=== PATIENT | female | born 1950 | race Caucasian/White ===

== ENCOUNTER → 2016-04-19 | Outpatient (CLI) | payer OTHER ==
[~2016-04-19] MED LIST: ACETAMINOPHEN 325 MG TAB PO ONE; diphenhydrAMINE 25 MG CAP PO ONE
[2016-04-19 11:24] LABS: % IMMATURE GRANULOCYTES 0.5 % (0.0-1.1); ABSOLUTE IMMATURE GRANULOCYTES 0.03 10^3/uL (0-0.10); HEMATOCRIT 26.1 % (38.0-47.0); HEMOGLOBIN 8.8 g/dL (12.6-16.3); MEAN CELL HEMOGLOBIN 35.6 pg (27.9-34.1); MEAN CELL HEMOGLOBIN CONC. 33.7 g/dL (32.4-36.7); MEAN CELL VOLUME 105.7 fL (81.5-99.8); MEAN PLATELET VOLUME 12.4 fL (8.7-11.7); RED BLOOD CELL COUNT 2.47 10^6/uL (4.18-5.33); RED CELL DISTRIBUTION WIDTH 15.3 % (11.5-15.2)
[2016-04-19 12:06] LABS: ALANINE AMINOTRANSFERASE 25 IU/L (9-52); ALKALINE PHOSPHATASE 63 IU/L (38-126); ANION GAP 10 mEq/L (8-16); ASPARTATE AMINOTRANSFERASE 25 IU/L (14-46); BILIRUBIN,TOTAL 0.8 mg/dL (0.1-1.4); CALCIUM 9.1 mg/dL (8.5-10.4); CARBON DIOXIDE 20 mEq/l (22-31); CHLORIDE 107 mEq/L (97-110); GLOMERULAR FILTRATION RATE 55; GLUCOSE 101 mg/dL (70-100); POTASSIUM 4.6 mEq/L (3.5-5.2); SODIUM 137 mEq/L (134-144); TOTAL PROTEIN 5.7 g/dL (6.3-8.2)
== END ==
LOC: RMCCLAB 06:09 → EDSTATUS 16:38 → F3EOP 16:39
PROVIDERS: ATTEND Internal Medicine Hematology & Oncology
PROC: 30233R1 Transfusion of Nonautologous Platelets into Peripheral Vein, Percutaneous Approach (ICD-10-PCS; principal; 2016-04-19)
DX: C50.919 Malignant neoplasm of unspecified site of unspecified female breast (principal)
CPT/HCPCS: 36430; P9037

== ENCOUNTER → 2016-04-25 | Outpatient (CLI) | payer OTHER ==
[2016-04-24 10:45] LABS: % IMMATURE GRANULOCYTES 1.6 % (0.0-1.1); ABSOLUTE IMMATURE GRANULOCYTES 0.12 10^3/uL (0-0.10); HEMOGLOBIN 7.8 g/dL (12.6-16.3); MEAN CELL HEMOGLOBIN 36.3 pg (27.9-34.1); MEAN CELL HEMOGLOBIN CONC. 33.9 g/dL (32.4-36.7); MEAN PLATELET VOLUME 10.5 fL (8.7-11.7); RED BLOOD CELL COUNT 2.15 10^6/uL (4.18-5.33); RED CELL DISTRIBUTION WIDTH 16.8 % (11.5-15.2)
[2016-04-24 11:48] LABS: ALANINE AMINOTRANSFERASE 27 IU/L (9-52); ALBUMIN 3.2 g/dL (3.5-5.0); ALKALINE PHOSPHATASE 60 IU/L (38-126); ANION GAP 11 mEq/L (8-16); ASPARTATE AMINOTRANSFERASE 27 IU/L (14-46); BILIRUBIN,TOTAL 0.5 mg/dL (0.1-1.4); CARBON DIOXIDE 20 mEq/l (22-31); CHLORIDE 110 mEq/L (97-110); CREATININE 0.9 mg/dL (0.6-1.0); GLOMERULAR FILTRATION RATE > 60; GLUCOSE 127 mg/dL (70-100); POTASSIUM 4.5 mEq/L (3.5-5.2); SODIUM 141 mEq/L (134-144); TOTAL PROTEIN 5.6 g/dL (6.3-8.2)
[~2016-04-25] MED LIST changes: -diphenhydrAMINE 25 MG CAP PO ONE
== END ==
LOC: RMCCLAB 04-24 06:39 → EDSTATUS 12:21 → F3EOP 12:22
PROVIDERS: ATTEND Internal Medicine Hematology & Oncology
PROC: 30233N1 Transfusion of Nonautologous Red Blood Cells into Peripheral Vein, Percutaneous Approach (ICD-10-PCS; principal; 2016-04-25)
DX: C50.211 Malignant neoplasm of upper-inner quadrant of right female breast (principal)
CPT/HCPCS: 36430; P9016

== ENCOUNTER 2016-05-22 14:47 | Inpatient (IN) | payer OTHER ==
[2016-05-22] MEDS ORDERED: ONDANSETRON DISINTEGRATING 4 MG TAB PO PRN ×2 (17:59→18:52)
[2016-05-22] MEDS ORDERED: ONDANSETRON 4 MG/2 ML VIAL IVP PRN (17:59)
[2016-05-22] MEDS ORDERED: NS W/ 20 KCl/L 1,000 ML IV SCH (18:00)
[2016-05-22] MEDS ORDERED: NON-FORMULARY NEW DRUG (Ondansetron [Zofran Odt] 8 MG) PO PRN (18:38)
[2016-05-22] MEDS ORDERED: DIPHENOXYLATE/ATROPINE LOMOTIL 1 TAB PO PRN (18:38)
[2016-05-22] MEDS: ACETAMINOPHEN 325 MG TAB PO PRN (19:07)
--- NOTE | 2016-05-22 19:51 | GHP ---
[f rep st] HISTORY AND PHYSICAL DATE OF ADMISSION: 05/22/2016 HISTORY OF PRESENT ILLNESS: The patient is a pleasant 66-year-old female with a history of breast c ancer diagnosed in January of last year, who is currently undergoing chemotherapy. She also has a history of chronic diarrhea secondary to rectal prolapse and colon resection. She [facility] today with ongoing diarrhea, and was found to have hypokalemia. When I speak with the patient, she says she is having some dark diarrhea. She is not having any hem atemesis or coffee-grounds emesis. There is no bright red blood per rectum. She does have a histor y of upper GI bleed secondary to NSAIDs. However, she has not been taking NSAIDs as much lately. She has abdominal cramping, but no shawna abdominal pain. She has been lightheaded and chilled, but no rigors. She has not taken recent antibiotics, as far she knows. She has been tested for C diffi cile as recently as February, and it has been negative. She has no shortness of breath. No cough. I discussed the case with Dr. Mayuri Holm, who confirms that her neutropenia is expected as well as he r pancytopenia. REVIEW OF SYSTEMS: Complete 10-point review of systems was conducted and is negative, except as not ed in the HPI. PAST HISTORY: 1. Breast cancer, details are well chronicled in Dr. Holm's note. 2. Current chemotherapy. 3. History of:. a. Rectal prolapse. b. Abdominal hernia repair. c. Upper GI bleed secondary to NSAID induced ulcerations. ALLERGIES: No known drug allergies. HOME MEDICATIONS: Diphenoxylate, atropine, potassium chloride, trazodone, pantoprazole 40 daily, pa roxetine, ondansetron, multivitamin, loperamide, vitamin D3. 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 She used to live in [place], but recently relocated to [place]. She is a nonsmoker. Minimal alcohol. FAMILY HISTORY: Reviewed and unremarkable. PHYSICAL EXAMINATION: VITAL SIGNS: Blood pressure 92/56, pulse 87, breathing 18 times a minute, 99 % on room air, afebrile at 36. GENERAL: In no acute distress. HEENT: Sclerae are anicteric. She has alopecia. Oropharynx is clear. Mucous membranes are moist. NECK: Supple, without lymphadeno john or JVD. LUNGS: Clear to auscultation anterolaterally. HEART: S1, S2. Not tachycardic. AB DOMEN: Soft. Bowel sounds are present. There is no rebound or guarding. LOWER EXTREMITIES: Ther e is a rash present. There is no edema. SKIN: Rash, as mentioned. NEUROLOGIC: Grossly nonfocal. LABS: White count 1.3, ANC 0.2, hemoglobin 6.7, MCV is elevated at 108.7, platelet count is 90. So dium 136, potassium 2.9, chloride 100, bicarb 26, BUN 14, creatinine 0.9. LFTs normal. Albumin is 3.2. IMAGING: There is no imaging I have reviewed and summarized. Previous hospital records in the HPI. I discussed the case Dr. Mayuri Holm. ASSESSMENT AND PLAN: A 66-year-old female with breast cancer, undergoing active chemotherapy, prese nts with pancytopenia and diarrhea. 1. Diarrhea. The patient is at risk for C difficile. However, this presentation it sounds like ex acerbation of her chronic diarrhea perhaps as evidenced by her progressive diarrhea. I think it is reasonable for now to continue her antimotility agents. Dr. Holm would like to add fluoroquinolone f or the neutropenic patient with diarrhea. C difficile will be sent, but given my low suspicion, it is reasonable to continue these therapies until we find that result. Certainly we will stop antibio tic broad-spectrum antibiotics and other things. 2. Neutropenia. She is afebrile without a source of infection. Will give her levofloxacin. As no iglesia, I will not perform a fever workup at this time. Certainly if she has a fever, we will follow. I do hear that she was 99.4 in clinic. We will follow. I will order a set of blood cultures at th is time. She is at risk for bacteremia from translocation. 3. Pancytopenia. This is secondary to chemotherapy. We will follow. 4. Question upper gastrointestinal bleed. She does note some dark diarrhea. She is on a PPI, whic h we will continue. Will hold NSAIDs. There is no hematemesis or coffee-grounds emesis. Will luong sfuse 3 units of packed cells. 5. Breast cancer. She is responding well to chemotherapy and has good prognosis. 6. Code status. She is full. 7. Prophylaxis. Multiple contraindications for pharmacologic prophylaxis. 8. Disposition: Inpatient. 9. Hypokalemia. Will continue her outpatient oral potassium and place her on the potassium protoco l. Will check a magnesium in the morning. /[id number]/MODL
--- NOTE | 2016-05-22 20:16 | CPEKG ---
Heart Rate: 95 RR Interval: 632 P-R Interval: 156 QRSD Interval: 86 QT Interval: 388 QTC Interval: 488 P Melvin: 58 QRS Melvin: 18 T Wave Melvin: 196 EKG Severity - ABNORMAL ECG - EKG Impression: SINUS RHYTHM EKG Impression: PROBABLE LEFT ATRIAL ABNORMALITY EKG Impression: PROBABLE ANTEROSEPTAL INFARCT, AGE INDETERM EKG Impression: BORDERLINE T ABNORMALITIES, INFERIOR LEADS EKG Impression: LATERAL LEADS ARE ALSO INVOLVED EKG Impression: BORDERLINE PROLONGED QT INTERVAL EKG Impression: DIFFUSE ST ABNORMALITIES Electronically Signed By: Kalpana Bernardo 23-May-2016 15:11:57
[2016-05-22] MEDS: traZODone 100 MG TAB PO SCH (21:24)
[2016-05-22] MEDS: LOPERAMIDE HCL 2 MG CAP PO PRN (21:47)
--- NOTE | 2016-05-22 22:01 | GCON ---
[f rep st] CONSULTATION ONCOLOGY CONSULTATION DATE OF CONSULTATION: 05/22/2016 REFERRING PHYSICIAN: Damián Espinoza MD REASON FOR CONSULTATION: Chemotherapy-induced diarrhea, toxicities from chemotherapy. HISTORY OF PRESENT ILLNESS: The patient is a 66-year-old woman known to me from the outpatient clinic who was diagnosed with a clinical IIA right upper inner quadrant breast cancer (invasive ductal carcinoma, grade 2, ER negative, CA negative, HER2 positive, Ki-67 40%) in December. She had clinical node positive disease in the right axilla, and lymph node biopsy confirmed metastatic adenocarcinoma. She began neoadjuvant therapy with Taxotere, carboplatin, Herceptin plus Perjeta. She has tolerated chemotherapy with significant, but manageable, toxicities, primarily diarrhea and anemia. She received her sixth and final cycle of TCH plus Perjeta 05/15/2016 with Neulasta on day 2. She is seen regularly in the office for supportive care. At her appointmetn today, she reported increased diarrhea, up to 10 times a day. She reports using Imodium and Lomotil at maximum dosing, although it has often been unclear in the past if she is doing that. She has had no nausea or vomiting. She feels hungry. She felt cold in the office, but has not had a fever, as far as she knows. She hads some dyspnea on exertion. Her mouth is sore. She has some mild abdominal pain, which she attributes to her diarrhea. Her right axillary adenopathy and right breast mass has completely resolved by physical exam with chemotherapy. She will continue maintenance Herceptin to complete a total of one year of therapy. We plan for posttreatment breast MRI for surgical planning. Her surgeon is Dr. Aquino. PAST MEDICAL HISTORY: 1. Peptic ulcer disease related to NSAIDs (01/2016), EGD at that time. 2. Chronic rectal prolapse and solitary rectal ulcer by colonoscopy last fall. 3. Depression. 4. Back pain, secondary to DJD and canal stenosis. She has a right footdrop due to canal stenosis. PAST SURGICAL HISTORY: 1. Partial colectomy for rectal prolapse and diverticulosis, 2001. 2. Hernia repair, 2001. 3. Orthopedic surgeries for fractures. MEDICATIONS: Outpatient: Lomotil and Imodium, as above. KCl supplementation ( 40 mEq b.i.d.). Magic mouthwash p.r.n. Zofran ODT p.r.n. Pantoprazole 40 mg daily. Compazine p.r.n. Claritin 10 mg daily for Neulasta arthralgias. Paxil 20 mg daily. Trazodone 50 mg daily. Vitamin D 5000 international units daily. ALLERGIES: No known drug allergies. SOCIAL HISTORY: She is single. Her son, January, lives in [place], and has been staying with her to help with her care. 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 She drinks alcohol rarely. She has another son in [place]. FAMILY HISTORY: No Yazdanism ancestry. She has 2 sons, 39 and 41. She had 2 brothers, one of ocular melanoma. Her mother may have had breast cancer at the age of 23, but there are no details, and the patient reports she never heard about that until recently. Her mother is elderly, and has some memory issues, and she wonders if that is accurate. Her paternal grandmother had either lung cancer or breast cancer. No other family history of malignancy. REVIEW OF SYSTEMS: CONSTITUTIONAL: Per HPI. HEENT: She has Taxotere hyperlacrimation. Mouth pain as above. CARDIOVASCULAR: No chest pain, palpitations, PND, orthopnea, lower extremity edema. RESPIRATORY: Per HPI. No cough or pleurisy. GI: Per HPI. She has chronic bright red blood per rectum related to her rectal prolapse, and she reports that has been about the same. She does have some tenderness around her rectum, which she attributes to diarrhea. MUSCULOSKELETAL: Unchanged longstanding back pain. NEUROLOGIC: She has a right footdrop related to canal stenosis, and is supposed to be using an AFO. She has had an intermittent low-level headache. HEMATOLOGIC: No other bruising or bleeding. SKIN: She has had a diffuse erythematous papular rash, likely related to chemotherapy (Taxotere). She reports this has been worse over the last 4 days over her lower extremities and upper extremities. PHYSICAL EXAMINATION: VITAL SIGNS: In the office, blood pressure 100/60, pulse 100, respirations 16, temperature 99.4, 98% on room air. Weight 124 pounds (131 pounds one week ago). GENERAL: She is alert and oriented, appears chronically ill and fatigued, but in no acute distress. Alopecia. HEENT: Bilateral hyperlacrimation without conjunctival injection. Oropharynx is remarkable for superficial ulceration along the right lateral tongue border. No exudate. NECK: Supple. CARDIOVASCULAR: Regular rate and rhythm. No pitting edema. LUNGS: Clear to auscultation bilaterally. ABDOMEN: Soft. No rebound, guarding. Normal bowel sounds. PERIRECTAL: Exam demonstrates a small area of superficial breakdown at 6:00 without erythema or induration. SKIN: Port without erythema or tenderness. She has a diffuse erythematous papular rash over the lower extremities and upper extremities, which is excoriated over the lower extremities. NEUROLOGIC: Grossly nonfocal. LABORATORY DATA: WBC 1.3, ANC 0.2, hemoglobin 6.7, platelets 90,000. Sodium 136, potassium 2.9, chloride 100, bicarbonate 26, BUN 14, creatinine 0.9, glucose 96. Albumin 3.2. Normal LFTs. IMPRESSION: 1. Pancytopenia, secondary to chemotherapy. She received Neulasta on day 2 (). She will need red cell transfusion. No indication for platelet transfusion. 2. Chemotherapy-induced diarrhea: She will receive supportive care with hydration, electrolyte replacement, maximum antidiarrheals (Imodium, Lomotil), and C. difficile will be checked. If she continues to have significant diarrhea , addition of octreotide would be appropriate. Given her neutropenia and significant diarrhea, she will be empirically covered with a fluoroquinolone. She will need a barrier cream for her superficial perirectal breakdown due to diarrhea. 3. Chemotherapy-induced mucositis: Mouth care and stomatitis cocktail. 4. Clinical stage IIA right ER negative, CA negative, HER2 positive breast cancer: Today is cycle 6, day 8, of TCH plus Perjeta. She has had an excellent clinical response to chemotherapy. When she recovers, she will have restaging posttreatment breast MRI and consultation with Dr. Aquino regarding surgery. She is due for followup limited ECHO on Herceptin before her next planned Herceptin therapy in 2 weeks (06/05/2016). It would be helpful to have this performed in the hospital so that she does not have to arrange transportation for that. Echocardiogram can be limited ("follow up of EF on chemotherapy," compare with Tensed Heart 01/25/2016 ECHO). Care plan reviewed with Dr. Espinoza and her nurse. /[id number]/MODL MTDD
[2016-05-23] MEDS: MBX SOLN 30 ML BOTTLE PO PRN (01:30)
[2016-05-23] MEDS: PANTOPRAZOLE SODIUM 40 MG TAB PO SCH (10:20)
[2016-05-23] MEDS: PARoxetine HCL 20 MG TAB PO SCH (10:20)
[2016-05-23] MEDS: MULTIVITAMINS 1 EACH TAB PO SCH (10:20)
[2016-05-23] MEDS: POTASSIUM CL 20 MEQ TAB PO SCH ×3 (10:20→16:50)
[2016-05-23] MEDS: CHOLECALCIFEROL VIT D3 1,000 UNITS TAB PO SCH (10:25)
[2016-05-23] MEDS ORDERED: ALTEPLASE 2 MG VIAL IVP ONE ×2 (10:30→13:00)
[2016-05-23] MEDS: ACETAMINOPHEN 325 MG TAB PO PRN ×2 (10:31→18:14)
[2016-05-23 12:58] LABS: % IMMATURE GRANULYOCYTES 1.1 % (0.0-1.1); ABSOLUTE IMMATURE GRANULOCYTES 0.05 10^3/uL (0.00-0.10); ADD DIFF? NO; ADD MORPH? NO; ADD SCAN? YES; ATYPICAL LYMPHOCYTE FLAG 0 (0-99); FRAGMENT RBC FLAG 0 (0-99); HEMATOCRIT 29.7 % (38.0-47.0); HEMOGLOBIN 10.3 g/dL (12.6-16.3); LIPEMIA HEMOLYSIS FLAG 90 (0-99); MEAN CELL HEMOGLOBIN 33.3 pg (27.9-34.1); MEAN CELL HEMOGLOBIN CONCENTR. 34.7 g/dL (32.4-36.7); MEAN CELL VOLUME 96.1 fL (81.5-99.8); MEAN PLATELET VOLUME 12.6 fL (8.7-11.7); PLATELET CLUMPS FLAG 0 (0-99); RED BLOOD CELL COUNT 3.09 10^6/uL (4.18-5.33); RED CELL DISTRIBUTION WIDTH 18.9 % (11.5-15.2)
[2016-05-23 13:01] LABS: LEFT SHIFT FLG 300 (0-99); PLATELET COUNT 49 10^3/uL (150-400)
[2016-05-23 13:22] LABS: ALANINE AMINOTRANSFERASE 34 IU/L (9-52); ALBUMIN 2.8 g/dL (3.5-5.0); ALKALINE PHOSPHATASE 53 IU/L (38-126); ANION GAP 9 mEq/L (8-16); ASPARTATE AMINOTRANSFERASE 35 IU/L (14-46); BILIRUBIN,TOTAL 2.8 mg/dL (0.1-1.4); CALCIUM 8.3 mg/dL (8.5-10.4); CARBON DIOXIDE 23 mEq/l (22-31); CHLORIDE 104 mEq/L (97-110); CREATININE 0.8 mg/dL (0.6-1.0); GLOMERULAR FILTRATION RATE > 60; GLUCOSE 93 mg/dL (70-100); POTASSIUM 2.9 mEq/L (3.5-5.2); SODIUM 136 mEq/L (134-144); TOTAL PROTEIN 5.1 g/dL (6.3-8.2)
[2016-05-23] MEDS ORDERED: PROTOCOL POTASSIUM 1 DOSE MISC PRN (13:34)
[2016-05-23 13:38] LABS: BILIRUBIN-CONJUGATED 0.4 mg/dL (0.0-0.5); BILIRUBIN-UNCONJUGATED 2.4 mg/dL (0.0-1.1)
[2016-05-23] MEDS ORDERED: DIPHENHYDRAMINE CREAM TP PRN (13:55)
[2016-05-23 14:03] LABS: SCAN NEGATIVE
[2016-05-23 14:04] LABS: PLATELET ESTIMATE DECREASED (ADEQ)
--- NOTE | 2016-05-23 16:02 | HOSPPROG ---
Hospitalist Progress Note Assessment/Plan: This 58-year-old female new to my care with history of breast cancer and chronic diarrhea presenting with: # acute on chronic diarrhea C diff negative in the setting of neutropenia # improving neutropenia # acute anemia of unclear etiology possibly due to blood loss status post 3 units of packed red blood cells # hypokalemia Plan: -supportive care -replace potassium -monitor signs symptoms of bleeding and consider GI consultation Subjective: Feels better after transfusion yesterday. continues to have diarrhea but denies any bloody diarrhea or emesis. no fevers or chills. still feels very weak Objective: Vital Signs Temp Pulse Resp BP Pulse Ox 36.9 C 81 18 112/80 96 05/23/16 15:21 05/23/16 15:21 05/23/16 15:21 05/23/16 15:21 05/23/16 15:21 Laboratory Results 05/23/16 12:40 05/23/16 12:40 05/22/16 05/23/16 05/24/16 05:59 05:59 05:59 Intake Total 1610 Output Total 203 Balance 1407 - Physical Exam Constitutional: chronically ill appearing Cardiovascular: regular rate and rhythym, no murmur, rub, or gallop Respiratory: no respiratory distress, no rales or rhonchi, clear to auscultation Gastrointestinal: normoactive bowel sounds, soft, non-tender abdomen, no palpable masses, No guarding, No rebound Neurologic: AAOx3 ICD10 Worksheet Patient Problems: Problems Problem Status Onset Lower GI bleed Acute Upper GI bleed Acute Diarrhea Acute
--- NOTE | 2016-05-23 17:31 | SOAPPROG ---
SOAP Progress Note Assessment/Plan: Assessment: * Chemotherapy induced diarrhea-patient reports 6 stools today, but did not take /receive any immodium. No blood in the stools. Will resume immodium. * Anemia/thrombocytopenia-chemotherapy induced. No indication for transfusion today. * Stage II Her2 + breast cancer-has completed neoadjuvant chemo with excellent response. * Rash-secondary to taxotere * Mucositis-mouth care. * * Subjective: 6 diarrheal stools, feels tired Objective: Vital Signs Temp Pulse Resp BP Pulse Ox 36.9 C 81 18 112/80 96 05/23/16 15:21 05/23/16 15:21 05/23/16 15:21 05/23/16 15:21 05/23/16 15:21 Laboratory Results 05/23/16 12:40 05/23/16 12:40 05/22/16 05/23/16 05/24/16 05:59 05:59 05:59 Intake Total 1610 Output Total 203 Balance 1407 Physical Exam - Physical Exam General Appearance: alert, no apparent distress Neck: supple Respiratory: lungs clear Abdomen: non-tender, soft, other (slightly hyperactive bowel sounds) Skin: other (extensive erythematous rash over lower extremities) ICD10 Worksheet Patient Problems: Problems Problem Status Onset Diarrhea Acute Lower GI bleed Acute Upper GI bleed Acute
[2016-05-23] MEDS: LOPERAMIDE HCL 2 MG CAP PO PRN ×2 (18:15→20:48)
[2016-05-23] MEDS ORDERED: IOPAMIDOL (ISOVUE-300) 50 ML VIAL IV ONE (19:24)
[2016-05-23] MEDS: traZODone 100 MG TAB PO SCH (20:49)
[2016-05-24 05:42] LABS: % IMMATURE GRANULYOCYTES 0.4 % (0.0-1.1); ABSOLUTE IMMATURE GRANULOCYTES 0.03 10^3/uL (0.00-0.10); ADD DIFF? NO; ADD MORPH? NO; ADD SCAN? YES; ATYPICAL LYMPHOCYTE FLAG 0 (0-99); FRAGMENT RBC FLAG 0 (0-99); HEMATOCRIT 28.1 % (38.0-47.0); HEMOGLOBIN 9.9 g/dL (12.6-16.3); LIPEMIA HEMOLYSIS FLAG 90 (0-99); MEAN CELL HEMOGLOBIN 34.6 pg (27.9-34.1); MEAN CELL HEMOGLOBIN CONCENTR. 35.2 g/dL (32.4-36.7); MEAN CELL VOLUME 98.3 fL (81.5-99.8); MEAN PLATELET VOLUME 12.4 fL (8.7-11.7); PLATELET CLUMPS FLAG 0 (0-99); RED BLOOD CELL COUNT 2.86 10^6/uL (4.18-5.33); RED CELL DISTRIBUTION WIDTH 19.2 % (11.5-15.2)
[2016-05-24 05:54] LABS: ALANINE AMINOTRANSFERASE 33 IU/L (9-52); ALBUMIN 2.7 g/dL (3.5-5.0); ALKALINE PHOSPHATASE 56 IU/L (38-126); ANION GAP 6 mEq/L (8-16); ASPARTATE AMINOTRANSFERASE 31 IU/L (14-46); CALCIUM 8.5 mg/dL (8.5-10.4); CARBON DIOXIDE 26 mEq/l (22-31); CHLORIDE 106 mEq/L (97-110); CREATININE 0.8 mg/dL (0.6-1.0); GLOMERULAR FILTRATION RATE > 60; GLUCOSE 78 mg/dL (70-100); POTASSIUM 3.2 mEq/L (3.5-5.2); SODIUM 138 mEq/L (134-144); TOTAL PROTEIN 4.6 g/dL (6.3-8.2)
[2016-05-24 05:59] LABS: LEFT SHIFT FLG 300 (0-99); PLATELET COUNT 31 10^3/uL (150-400)
[2016-05-24 08:09] LABS: SCAN NEGATIVE
[2016-05-24 08:10] LABS: PLATELET ESTIMATE DECREASED (ADEQ)
[2016-05-24] MEDS: LOPERAMIDE HCL 2 MG CAP PO PRN ×4 (08:52→16:17)
[2016-05-24] MEDS: CHOLECALCIFEROL VIT D3 1,000 UNITS TAB PO SCH (08:53)
[2016-05-24] MEDS: MULTIVITAMINS 1 EACH TAB PO SCH (08:53)
[2016-05-24] MEDS: PANTOPRAZOLE SODIUM 40 MG TAB PO SCH (08:53)
[2016-05-24] MEDS: PARoxetine HCL 20 MG TAB PO SCH (08:54)
[2016-05-24] MEDS: POTASSIUM CL 20 MEQ TAB PO SCH ×3 (09:43→19:39)
[2016-05-24] MEDS: ACETAMINOPHEN 325 MG TAB PO PRN (10:30)
--- NOTE | 2016-05-24 12:47 | HOSPPROG ---
Hospitalist Progress Note Assessment/Plan: This 58-year-old female with history of breast cancer and chronic diarrhea presenting with: # acute on chronic diarrhea C diff negative in the setting of resolved neutropenia -will dc Levaquin now that counts have recovered # improving neutropenia # acute anemia of unclear etiology possibly due to blood loss status post 3 units of packed red blood cells -I discussed GI workup with Dr. Holm who tells me that she has undergone extensive w/u in the past. Will just monitor h/h for now # hypokalemia (improved) # Taxotere related rash -no improvement with top benadryl -trial triamcinolone cream -benadryl po prn itching #back pain acute on chronic -start oxyir and trial lidoderm continue inpatient care Subjective: reports persistent diarrhea. no fevers or chills. no obvious bleeding. severe itching from rash on legs Objective: Vital Signs Temp Pulse Resp BP Pulse Ox 37.0 C 80 16 120/60 97 05/24/16 12:30 05/24/16 12:30 05/24/16 12:30 05/24/16 12:30 05/24/16 12:30 Laboratory Results 05/24/16 05:25 05/24/16 05:25 05/23/16 05/24/16 05/25/16 05:59 05:59 05:59 Intake Total 1610 1050 Output Total 203 Balance 1407 1050 - Physical Exam Constitutional: no apparent distress, appears nourished, not in pain Cardiovascular: regular rate and rhythym, no murmur, rub, or gallop Respiratory: no respiratory distress, no rales or rhonchi, clear to auscultation Gastrointestinal: normoactive bowel sounds, soft, non-tender abdomen, no palpable masses, No guarding, No rebound Genitourinary: no bladder fullness, no bladder tenderness, no renal bruits Skin: rash (scattered erythematous macules on legs) ICD10 Worksheet Patient Problems: Problems Problem Status Onset Lower GI bleed Acute Upper GI bleed Acute Diarrhea Acute
[2016-05-24] MEDS: LORazepam 1 MG TAB PO PRN (13:06)
[2016-05-24] MEDS: oxyCODONE IR 5 MG TAB PO PRN ×3 (13:07→20:36)
[2016-05-24] MEDS: LIDOCAINE 5% 1 EA PATCH TD SCH (13:07)
[2016-05-24] MEDS: TRIAMCINOLONE 0.1% 15 GM CRTUBE TP SCH ×2 (13:16→20:42)
--- NOTE | 2016-05-24 13:27 | SOAPPROG ---
SOAP Progress Note Assessment/Plan: Assessment: * Chemo-induced diarrhea: still significant. C dif neg. Imodium dosing not maximized. If not controlled with maximal antidiarrheals, octreotide. - Scheduled Lomotil - Perineal wound care * Chemo-induced pancytopenia: improving. No indication for plt xfus. xfus PRBCs as needed. WBC recovered. * Chemo-induced rash (Taxotere): doubt systemic steroids would be helpful and concern re: immunosuppresion. Symptomatic management (topical steroids, antihistamines, pain meds). * Back pain: known spinal canal stenosis and same location/character of pain but worse. - Pain meds - Try Lidoderm patch * Chronic LGIB: solitary rectal ulcer due to rectal prolapse. Exacerbated with diarrhea. Upper/lower endoscopies last fall. Would not w/u again unless increased bleeding. * Mildly elevated TBili: ?chemo. Improving. If increases, RUQ U/S. * Deconditioning: inpatient Rehab for strengthening, etc. would be appropriate. - PT - Nutrition consult * Clinical Stage II right breast cancer, ER/SC neg, HER2+: C6D10 TCH+P. Excellent response to tx. Due for maintenance Herceptin 06/05/16. Plan breast MRI and f/u with Dr. Aquino regarding surgery. 05/24/16 13:29 Subjective: Significant back pain and skin tenderness. Tearful earlier. O: AF, VSS. Gen: A&O, fatigued. HEENT: no icterus. Lungs: breathing comfortably, CTA. Abd: nontender, soft. Skin: diffuse erythematous rash. Port site ok. Neuro: nonfocal. Laboratory Tests 05/23/16 05/24/16 05/24/16 09:30 05:25 05:25 WBC 6.75 Hgb 9.9 L Plt Count 31 L Sodium 138 Potassium 3.2 L Chloride 106 Carbon Dioxide 26 Anion Gap 6 L BUN 14 Glucose 78 Total Bilirubin 2.0 H AST 31 ALT 33 Alkaline Phosphatase 56 C. difficile Tox (PCR) NEGATIVE Objective: Vital Signs Temp Pulse Resp BP Pulse Ox 37.0 C 80 16 120/60 97 05/24/16 12:30 05/24/16 12:30 05/24/16 12:30 05/24/16 12:30 05/24/16 12:30 Laboratory Results 05/24/16 05:25 05/24/16 05:25 05/23/16 05/24/16 05/25/16 05:59 05:59 05:59 Intake Total 1610 1050 Output Total 203 Balance 1407 1050 ICD10 Worksheet Patient Problems: Problems Problem Status Onset Diarrhea Acute Lower GI bleed Acute Upper GI bleed Acute
--- NOTE | 2016-05-24 15:33 | ECHO ---
[id number] + + [address] : : [place] [address] : : [phone] + + Adult Echocardiographic Report + --------+ :Name: Carolee BARKER Date: 05/24/2016 01:09 PM : : Hospital Admission Number: [id number] Locat ion: 150: :: 1950 Gender: Female : :Age: 66 yrs Race: WH : :Reason For Study: comapre ejection fraction : :History: breast cancer : + --------+ MMode/2D Measurements \T\ Calculations IVSd: 0.65 cm LVIDd: 3.9 cmFS: 46.3 % LVLd ap4: 7.7 cm LVPWd: 0.71 cm LVIDs: 2.1 cmEDV(Teich): 66.3 ml EDV(MOD-sp4): 97.0 ml ESV(Teich): 14.4 ml LVLs ap4: 5.7 cm EF(Teich): 78.3 % ESV(MOD-sp4): 32.0 ml EF(MOD-sp4): 67.0 % SV(MOD-sp4): 65.0 ml Normal Measurement Values: + + :LVIDd (3.5-5.7cm) IVSd (0.6-1.1cm) LVPWd (0.6-1.1cm) Aortic Root (2.0-3.7cm)Left Atrium (1.5-4.0cm): :LV Vol(d) (76-115ml) LV Vol(s) (29-48ml) Ejec Fraction (50-65%)PV Omer (0.6- 1.2m/s) TV Omer (0.4-1.0m/s) : :MV E Omer (0.8-1.0m/s)MV A Omer (0.3-1.0m/s)LVOT Omer (0.7-1.2m/s) Asc Ao Omer ( 0.9-1.8m/s) : + + Left Ventricle The left ventricle is normal in size and function. There is normal left ventricular wall thickness. Left ventricular systolic function is normal. Ejection Fraction = 67%. No regional wall motion abnormalities noted. Conclusion Limited 2D echocardiogram to compare ejection fraction today to previous ejection fraction measured 01/2016. The left ventricle is normal in size and function. Left ventricular systolic function is normal. Ejection Fraction = 67%. Normal wall motion. Final Reading Physician: Joaquin Porras signed on 05/24/2016 03:31 PM Ordering Physician: Mayuri Holm Performed By: Tammy Mtz
--- NOTE | 2016-05-24 15:57 | WOCRNPDOC ---
WOCRN Advanced Assessment Note - Skin Integrity Problem, Advanced Assess Gluteal Cleft Incont Assoc Dermatitis Dressing Type: Open to Air Exudate Amount: Scant Exudate Color: Reddish/Yellow Exudate Characteristic(s): Serosanguinous Integumentary Issue Intervention: Lotion/Cream Applied (Zinc) Eryn Wound Tissue: Blanching, Erythema, Denuded Eryn Wound Swelling: Mild Wound Bed Color: Red Wound Bed Constitution: Smooth Tissue Site Odor: None Skin Integrity Problem Comment: Severely denuded and raw skin noted in gluteal cleft, distal to coccyx. Shallow, weepy ulcerations w/ macerated margins, indicative of tissue damage from excessive moisture. This is most likely r/t frequent, loose stools. Patient reports that this has been an issue for "months. " Order for Calazime to be applied to site, not to remove it fully w/ pericare. Patient should remain brief-free to reduce moisture/ heat.
[2016-05-24] MEDS: DIPHENOXYLATE/ATROPINE LOMOTIL 1 TAB PO SCH ×2 (16:17→20:35)
[2016-05-24] MEDS: MBX SOLN 30 ML BOTTLE PO PRN (20:35)
[2016-05-24] MEDS: traZODone 100 MG TAB PO SCH (20:36)
[2016-05-24] MEDS: PATCH REMOVAL 1 EA PATCH TD SCH (20:43)
[2016-05-25] MEDS: D5W 1/2 NS W/ 20 KCl/L 1,000 ML IV SCH ×2 (04:27→15:12)
[2016-05-25 04:43] LABS: % IMMATURE GRANULYOCYTES 0.7 % (0.0-1.1); ABSOLUTE IMMATURE GRANULOCYTES 0.06 10^3/uL (0.00-0.10); ADD DIFF? NO; ADD MORPH? NO; ADD SCAN? YES; ATYPICAL LYMPHOCYTE FLAG 0 (0-99); FRAGMENT RBC FLAG 0 (0-99); HEMATOCRIT 28.5 % (38.0-47.0); HEMOGLOBIN 9.7 g/dL (12.6-16.3); LIPEMIA HEMOLYSIS FLAG 90 (0-99); MEAN PLATELET VOLUME 12.4 fL (8.7-11.7); PLATELET CLUMPS FLAG 40 (0-99); RED BLOOD CELL COUNT 2.85 10^6/uL (4.18-5.33); RED CELL DISTRIBUTION WIDTH 19.1 % (11.5-15.2)
[2016-05-25 04:49] LABS: LEFT SHIFT FLG 300 (0-99)
[2016-05-25 04:50] LABS: PLATELET COUNT 18 10^3/uL (150-400)
[2016-05-25] MEDS: DIPHENOXYLATE/ATROPINE LOMOTIL 1 TAB PO SCH ×4 (05:01→22:07)
[2016-05-25] MEDS: MBX SOLN 30 ML BOTTLE PO PRN (05:02)
[2016-05-25] MEDS: oxyCODONE IR 5 MG TAB PO PRN ×5 (05:10→22:15)
[2016-05-25 05:24] LABS: ALBUMIN 2.7 g/dL (3.5-5.0); ANION GAP 8 mEq/L (8-16); CALCIUM 8.7 mg/dL (8.5-10.4); CARBON DIOXIDE 23 mEq/l (22-31); CHLORIDE 108 mEq/L (97-110); CREATININE 0.8 mg/dL (0.6-1.0); GLOMERULAR FILTRATION RATE > 60; GLUCOSE 93 mg/dL (70-100); POTASSIUM 3.8 mEq/L (3.5-5.2); SCAN NEGATIVE; SODIUM 139 mEq/L (134-144); TOTAL PROTEIN 4.7 g/dL (6.3-8.2)
[2016-05-25 05:25] LABS: ALANINE AMINOTRANSFERASE 32 IU/L (9-52); ALKALINE PHOSPHATASE 66 IU/L (38-126); ASPARTATE AMINOTRANSFERASE 27 IU/L (14-46); BILIRUBIN,TOTAL 1.4 mg/dL (0.1-1.4); PLATELET ESTIMATE DECREASED (ADEQ)
[2016-05-25] MEDS: MULTIVITAMINS 1 EACH TAB PO SCH (09:13)
[2016-05-25] MEDS: POTASSIUM CL 20 MEQ TAB PO SCH ×3 (09:13→18:26)
[2016-05-25] MEDS: PANTOPRAZOLE SODIUM 40 MG TAB PO SCH (09:14)
[2016-05-25] MEDS: PARoxetine HCL 20 MG TAB PO SCH (09:14)
[2016-05-25] MEDS: CHOLECALCIFEROL VIT D3 1,000 UNITS TAB PO SCH (09:14)
[2016-05-25] MEDS: TRIAMCINOLONE 0.1% 15 GM CRTUBE TP SCH ×2 (09:17→21:26)
[2016-05-25] MEDS: diphenhydrAMINE 25 MG CAP PO PRN ×3 (09:23→22:22)
[2016-05-25] MEDS: LIDOCAINE 5% 1 EA PATCH TD SCH (09:24)
[2016-05-25] MEDS ORDERED: POTASSIUM CL 10 MEQ TAB PO ONE (10:00)
[2016-05-25] MEDS: LOPERAMIDE HCL 2 MG CAP PO PRN ×2 (12:36→21:28)
--- NOTE | 2016-05-25 14:27 | SOAPPROG ---
SOAP Progress Note Assessment/Plan: Assessment: 1) Early stage breast cancer s/p recent neoadjuvant chemotherapy 2) Taxotere induced rash 3) Chemo induced diarrhea 4) H/o chronic lower GI bleed secondary to rectal ulcer 5) Chronic low back pain with Right foot drop (not malignancy related) 6) Chemotherapy induced pancytopenia. Plan: Overall she is doing better. She feels less discomfort from the rash, and it is not progressive. Continue supportive care. Her diarrhea is slowly responding to Lomotil. We discussed the option of Octreotide. She would prefer not to start a new medicine. Her platelets are lower. There is no evidence of bleeding. I do not favor transfusion at this point. Would consider transfusion for count less than 15k. H/H stable. The patient would benefit from inpatient rehab prior to going home. I discussed this with her and she would be open to this. Will involve case management once she gets closer to discharge. She has completed her initial neoadjuvant treatment. 05/25/16 14:21 05/25/16 14:31 Subjective: Feels better. Rash not progressive. Diarrhea persists, but somewhat better on Lomotil. Denies bleeding. Objective: Vital Signs Temp Pulse Resp BP Pulse Ox 36.7 C 81 16 112/60 98 05/25/16 12:00 05/25/16 12:00 05/25/16 12:00 05/25/16 12:00 05/25/16 12:00 Laboratory Results 05/25/16 04:30 05/25/16 04:30 05/24/16 05/25/16 05/26/16 05:59 05:59 06:59 Intake Total 1050 1700 Output Total 200 Balance 1050 1500 - Time Spent With Patient Time Spent With Patient: 25 minutes Physical Exam - Physical Exam General Appearance: alert, no apparent distress EENT: other (No visible oral ulcerations or thrush) Respiratory: lungs clear, normal breath sounds Cardiac/Chest: regular rate, rhythm Abdomen: non-tender, soft Skin: other (Diffuse maccular rash involving chest and all 4 extremities. No evidence of cellulitis) Neuro/Psych: alert, normal mood/affect ICD10 Worksheet Patient Problems: Problems Problem Status Onset Diarrhea Acute Lower GI bleed Acute Upper GI bleed Acute
--- NOTE | 2016-05-25 15:37 | HOSPPROG ---
Hospitalist Progress Note Assessment/Plan: 58-year-old female with history of breast cancer and chronic diarrhea presenting with: # acute on chronic diarrhea C diff negative in the setting of resolved neutropenia -DC'd Levaquin now that counts have recovered # thrombocytopenia # improving neutropenia # acute anemia of unclear etiology possibly due to blood loss status post 3 units of packed red blood cells -Dr. Maldonado had discussed GI workup with Dr. Holm who said she has undergone extensive w/u in the past. -monitor blood counts. -Onc recs appreciated. # hypokalemia, resolved # Taxotere related rash -no improvement with top benadryl -triamcinolone cream -benadryl po prn itching #back pain acute on chronic -oxyir and lidoderm Dispo: Med surg, inpatient care Subjective: Pt was feeling tired today. Has been eating some food. C/o back pain , pain all over body which she says is chronic. Objective: Vital Signs Temp Pulse Resp BP Pulse Ox 36.7 C 81 16 112/60 98 05/25/16 12:00 05/25/16 12:00 05/25/16 12:00 05/25/16 12:00 05/25/16 12:00 Laboratory Results 05/25/16 04:30 05/25/16 04:30 05/24/16 05/25/16 05/26/16 05:59 05:59 06:59 Intake Total 1050 1700 Output Total 200 Balance 1050 1500 General: The patient is a thin, elderly female who is alert and in no acute distress. HEENT: normocephalic, extraocular movements intact, conjunctivae clear. No lesions on face. Mucous membranes moist. Neck: trachea midline, no visible masses, no external lesions. Abd: soft and nondistended. +BS, nontender throughout. Musculoskeletal: Normal muscle tone and bulk. Neuro: cranial nerves II XII grossly intact. Intact gross motor and sensory function. Psych: appropriate mood/affect. Skin: + Petechiae on upper and lower extremities bilaterally. Heme/lymph: No peripheral edema. ICD10 Worksheet Patient Problems: Problems Problem Status Onset Diarrhea Acute Lower GI bleed Acute Upper GI bleed Acute
[2016-05-25 19:10] LABS: POTASSIUM 3.9 mEq/L (3.5-5.2)
[2016-05-25] MEDS: LORazepam 1 MG TAB PO PRN (21:27)
[2016-05-25] MEDS: traZODone 100 MG TAB PO SCH (21:27)
[2016-05-25] MEDS: PATCH REMOVAL 1 EA PATCH TD SCH (22:07)
[2016-05-25] MEDS: POTASSIUM Cl (KCl) 100 ML IV SCH ×2 (22:08→23:47)
[2016-05-26] MEDS: DIPHENOXYLATE/ATROPINE LOMOTIL 1 TAB PO SCH ×4 (04:54→21:23)
[2016-05-26 05:10] LABS: HEMATOCRIT 27.8 % (38.0-47.0); HEMOGLOBIN 9.3 g/dL (12.6-16.3); LIPEMIA HEMOLYSIS FLAG 80 (0-99); MEAN CELL HEMOGLOBIN 34.4 pg (27.9-34.1); MEAN CELL HEMOGLOBIN CONCENTR. 33.5 g/dL (32.4-36.7); PLATELET CLUMPS FLAG 0 (0-99); RED CELL DISTRIBUTION WIDTH 18.6 % (11.5-15.2)
[2016-05-26 05:16] LABS: PLATELET COUNT 11 10^3/uL (150-400)
[2016-05-26 05:43] LABS: PLATELET ESTIMATE DECREASED (ADEQ)
[2016-05-26 09:30] LABS: POTASSIUM 4.7 mEq/L (3.5-5.2)
[2016-05-26] MEDS: PANTOPRAZOLE SODIUM 40 MG TAB PO SCH (09:46)
[2016-05-26] MEDS: POTASSIUM CL 20 MEQ TAB PO SCH ×3 (09:46→18:28)
[2016-05-26] MEDS: LIDOCAINE 5% 1 EA PATCH TD SCH (09:46)
[2016-05-26] MEDS: CHOLECALCIFEROL VIT D3 1,000 UNITS TAB PO SCH (09:46)
[2016-05-26] MEDS: PARoxetine HCL 20 MG TAB PO SCH (09:46)
[2016-05-26] MEDS: MULTIVITAMINS 1 EACH TAB PO SCH (09:46)
[2016-05-26] MEDS: MBX SOLN 30 ML BOTTLE PO PRN ×2 (09:49→17:28)
[2016-05-26] MEDS: TRIAMCINOLONE 0.1% 15 GM CRTUBE TP SCH (09:50)
--- NOTE | 2016-05-26 11:49 | SOAPPROG ---
SOAP Progress Note Assessment/Plan: Assessment: 1) Early stage breast cancer s/p recent neoadjuvant chemotherapy 2) Taxotere induced rash 3) Chemo induced diarrhea 4) H/o chronic lower GI bleed secondary to rectal ulcer 5) Chronic low back pain with Right foot drop (not malignancy related) 6) Chemotherapy induced pancytopenia. Plan: Overall she continues to improve. She feels less discomfort from the rash, and it is not progressive. Continue supportive care. Her diarrhea is slowly responding to Lomotil. We again discussed the option of Octreotide. She would prefer not to start a new medicine. Her platelets are lower. There is no evidence of bleeding. I have recommended a prophylactic platelet transfusion. Risks/benefits discussed. She consents and has already signed a transfusion consent this hospital stay. This was not cosigned, so I have signed it today. The patient would benefit from inpatient rehab prior to going home. I discussed this with her and she would be open to this. I have discussed with case management and they will meet with her today to review options. She has completed her initial neoadjuvant treatment. Plan discussed with patient. 05/25/16 14:21 05/25/16 14:31 05/26/16 11:35 Subjective: Feels better. Rash better. No pruitis. Diarrhea persists. Denies bleeding. Objective: Vital Signs Temp Pulse Resp BP Pulse Ox 36.9 C 82 16 104/58 L 95 05/26/16 09:40 05/26/16 09:40 05/26/16 09:40 05/26/16 09:40 05/26/16 09:40 Laboratory Results 05/26/16 05:00 05/26/16 08:44 05/25/16 05/26/16 05/27/16 04:59 05:59 05:59 Intake Total Output Total Balance - Time Spent With Patient Time Spent With Patient: 25 minutes Physical Exam - Physical Exam General Appearance: alert, no apparent distress EENT: PERRL/EOMI, other (Clear. No mucosal lesions) Respiratory: lungs clear Cardiac/Chest: regular rate, rhythm Abdomen: non-tender, soft Skin: other (Rash improving. No evidence of cellulitis) Neuro/Psych: normal mood/affect ICD10 Worksheet Patient Problems: Problems Problem Status Onset Diarrhea Acute Lower GI bleed Acute Upper GI bleed Acute
[2016-05-26] MEDS: TRIAMCINOLONE TP SCH ×2 (12:24→21:24)
[2016-05-26] MEDS: oxyCODONE IR 5 MG TAB PO PRN ×2 (12:35→18:30)
[2016-05-26] MEDS: D5W 1/2 NS W/ 20 KCl/L 1,000 ML IV SCH (17:39)
[2016-05-26 17:43] LABS: POTASSIUM 4.5 mEq/L (3.5-5.2)
--- NOTE | 2016-05-26 18:16 | HOSPPROG ---
Hospitalist Progress Note Assessment/Plan: 58-year-old female with history of breast cancer and chronic diarrhea presenting with: # acute on chronic diarrhea, - C diff negative, from chemo s/e - DC'd Levaquin - Lomotil and Immodium. # thrombocytopenia - with intermittent daily (AM) minimal gingival bleeding/ epistaxis # improving neutropenia # acute anemia of unclear etiology possibly due to blood loss status post 3 units of packed red blood cells -Dr. Maldonado had discussed GI workup with Dr. Holm who said she has undergone extensive w/u in the past. -monitor blood counts. -Onc recs appreciated. -1u plt transfusion today # hypokalemia, resolved # Taxotere related rash - improving slowly -no improvement with topical benadryl -triamcinolone cream -benadryl po prn itching #back pain acute on chronic, foot drop -oxyir prn and lidoderm -needs PT/OT - would benefit from acute rehab placement instead of going straight home. #generalized weakness -secondary to deconditioning, chemotherapy s/e. -Discussed w/ Dr. Luque-- per Dr. Holm, pt to go to Acute Rehab following this hospital visit once she stabilizes. Dispo: Med surg, inpatient care. Plan for Acute Rehab sometime this week. Subjective: Saw pt this AM. No new complaints. Still w/ rash, diarrhea, notices crusted blood around nares in the AM when she awakes, also notices minimal gingival oozing. Objective: Vital Signs Temp Pulse Resp BP Pulse Ox 36.8 C 82 16 122/68 H 95 05/26/16 17:46 05/26/16 17:46 05/26/16 17:46 05/26/16 17:46 05/26/16 17:46 Laboratory Results 05/26/16 05:00 05/26/16 17:29 05/25/16 05/26/16 05/27/16 04:59 05:59 05:59 Intake Total Output Total Balance General: The patient is A thin, elderly female who is alert and in no acute distress. HEENT: normocephalic, extraocular movements intact, conjunctivae clear, no lesions on face. Mucous membranes moist. Neck: trachea midline, no visible masses, no external lesions. CV: +S1/S2, tachy rate, RR, no MRG. Resp: unlabored, CTAB no RRW. Abd: soft and nondistended. Bowel sounds present. Nontender throughout. Musculoskeletal: Moves all extremities spontaneously. normal muscle bulk and tone. Neuro: cranial nerves II XII grossly intact. Intact gross motor and sensory function. Psych: appropriate mood/affect. Skin: + Diffuse petechiae a over arms and legs. Heme/lymph: No peripheral edema. ICD10 Worksheet Patient Problems: Problems Problem Status Onset Diarrhea Acute Lower GI bleed Acute Upper GI bleed Acute
[2016-05-26] MEDS: traZODone 100 MG TAB PO SCH (21:21)
[2016-05-26] MEDS: LORazepam 1 MG TAB PO PRN (21:24)
[2016-05-26] MEDS: diphenhydrAMINE 25 MG CAP PO PRN (21:24)
[2016-05-26] MEDS: PATCH REMOVAL 1 EA PATCH TD SCH (21:39)
[2016-05-27] MEDS: oxyCODONE IR 5 MG TAB PO PRN ×6 (00:24→23:58)
[2016-05-27] MEDS: LOPERAMIDE HCL 2 MG CAP PO PRN ×3 (01:10→09:56)
[2016-05-27] MEDS: D5W 1/2 NS W/ 20 KCl/L 1,000 ML IV SCH ×4 (02:35→23:58)
[2016-05-27] MEDS: OCTREOTIDE ACETATE 50 MCG/ML INJ SC SCH ×4 (03:44→21:44)
[2016-05-27 04:12] LABS: HEMATOCRIT 25.6 % (38.0-47.0); HEMOGLOBIN 8.3 g/dL (12.6-16.3); MEAN CELL HEMOGLOBIN 33.7 pg (27.9-34.1); MEAN CELL HEMOGLOBIN CONCENTR. 32.4 g/dL (32.4-36.7); MEAN CELL VOLUME 104.1 fL (81.5-99.8); RED BLOOD CELL COUNT 2.46 10^6/uL (4.18-5.33); RED CELL DISTRIBUTION WIDTH 18.2 % (11.5-15.2)
[2016-05-27 04:24] LABS: ANION GAP 4 mEq/L (8-16); CALCIUM 8.7 mg/dL (8.5-10.4); CARBON DIOXIDE 23 mEq/l (22-31); CHLORIDE 110 mEq/L (97-110); CREATININE 0.7 mg/dL (0.6-1.0); GLOMERULAR FILTRATION RATE > 60; GLUCOSE 93 mg/dL (70-100); POTASSIUM 4.6 mEq/L (3.5-5.2); SODIUM 137 mEq/L (134-144)
[2016-05-27] MEDS: DIPHENOXYLATE/ATROPINE LOMOTIL 1 TAB PO SCH ×5 (06:01→23:58)
--- NOTE | 2016-05-27 08:37 | HOSPPROG ---
Hospitalist Progress Note Assessment/Plan: 58-year-old female, new to me today, with history of breast cancer and chronic diarrhea presenting with: - acute on chronic diarrhea, persistent with 10-15 stools per day. Will increase lomitil, immodium - C diff negative, from chemo s/e - DC'd Levaquin - Lomotil and Immodium. - thrombocytopenia - with intermittent daily (AM) minimal gingival bleeding/ epistaxis - improving neutropenia - acute anemia of unclear etiology possibly due to blood loss status post 3 units of packed red blood cells -Dr. Maldonado had discussed GI workup with Dr. Holm who said she has undergone extensive w/u in the past. -monitor blood counts. -Onc recs appreciated. -1u plt transfusion today - hypokalemia, resolved - Taxotere related rash - improving slowly; will add hydoxizine -no improvement with topical benadryl -triamcinolone cream -benadryl po prn itching - back pain acute on chronic, foot drop -oxyir prn and lidoderm -needs PT/OT - would benefit from acute rehab placement instead of going straight home. - generalized weakness -secondary to deconditioning, chemotherapy s/e. -Discussed w/ Dr. Luque-- per Dr. Holm, pt to go to Acute Rehab following this hospital visit once she stabilizes. Subjective: says she feels slightly better, rash is better but still itchy. diarrhea continues at 10-15 stools per day with perineal rash now due to diarrhea. No abdominal pain, nausea, vomiting, no chest pain, SOB Objective: Vital Signs Temp Pulse Resp BP Pulse Ox 36.8 C 104 H 16 98/72 L 89 L 05/27/16 05:19 05/27/16 05:19 05/27/16 05:19 05/27/16 05:19 05/27/16 05:19 Laboratory Results 05/27/16 03:40 05/27/16 03:40 05/26/16 05/27/16 05/28/16 05:59 05:59 05:59 Intake Total 1839 Output Total 200 Balance 1639 Laboratory Tests 05/23/16 05/26/16 05/27/16 12:40 05:00 03:40 Hgb 10.3 L 8.3 L Plt Count 11 L* 50 L - Time Spent With Patient Time Spent with Patient: greater than 35 minutes Time Spent with Patient: Greater than 35 minutes spent on this patients care, greater than 50% of time spent counseling, educating, and coordinating care regarding the above mentioned plan. - Pending Discharge Pending Discharge Within 24 Hours: No Pending Discharge Within 48 Hours: No - Physical Exam Constitutional: no apparent distress, chronically ill appearing Eyes: PERRL, anicteric sclera Ears, Nose, Mouth, Throat: moist mucous membranes, hearing normal Cardiovascular: regular rate and rhythym, no murmur, rub, or gallop Respiratory: no respiratory distress, no rales or rhonchi Gastrointestinal: normoactive bowel sounds, soft, non-tender abdomen, no palpable masses Skin: rash Musculoskeletal: generalized weakness Neurologic: AAOx3, CN II-XII Intact ICD10 Worksheet Patient Problems: Problems Problem Status Onset Lower GI bleed Acute Upper GI bleed Acute Diarrhea Acute
[2016-05-27] MEDS: CHOLECALCIFEROL VIT D3 1,000 UNITS TAB PO SCH (09:55)
[2016-05-27] MEDS: PARoxetine HCL 20 MG TAB PO SCH (09:55)
[2016-05-27] MEDS: MULTIVITAMINS 1 EACH TAB PO SCH (09:56)
[2016-05-27] MEDS: TRIAMCINOLONE TP SCH ×2 (09:56→20:16)
[2016-05-27] MEDS: MBX SOLN 30 ML BOTTLE PO PRN (09:56)
[2016-05-27] MEDS: PANTOPRAZOLE SODIUM 40 MG TAB PO SCH (09:56)
[2016-05-27] MEDS: LIDOCAINE 5% 1 EA PATCH TD SCH (09:58)
[2016-05-27] MEDS: POTASSIUM CL 20 MEQ TAB PO SCH ×3 (09:59→18:22)
[2016-05-27] MEDS: LOPERAMIDE HCL 2 MG CAP PO SCH ×4 (10:16→21:44)
[2016-05-27] MEDS: PSYLLIUM METAMUCIL 1 PKT PO SCH ×2 (10:19→20:16)
--- NOTE | 2016-05-27 11:04 | SOAPPROG ---
SOAP Progress Note Assessment/Plan: Assessment/Plan: 66yo woman w early stage HER2+ breast cancer s/p neoadjuvant Chemo w TCHP p/w chemo induced diarrhea, pancytopenia, taxotere induced rash, and deconditioning 1. Diarrhea - persistent and slow to improve agree w adding octreotide - pt started last night Cont aggressive lomotil/imodium/IVF C/ diff negative 2. Pancytopenia - chemo induced, counts improving, monitor for transfusion needs last received plts on 05/26/16 3. Taxotere rash - topicals and hydroxyzine for pruritus 4. deconditioning - short rehab stay is favored 5. Breast ca - believe she has completed neoadj chemo but will follow up with that prior to d/c 05/27/16 11:01 Subjective: No acute events overnight diarrhea continues denies fevers Objective: Vital Signs Temp Pulse Resp BP Pulse Ox 36.9 C 96 16 106/62 94 05/27/16 09:01 05/27/16 09:01 05/27/16 09:01 05/27/16 09:01 05/27/16 09:01 Laboratory Results 05/27/16 03:40 05/27/16 03:40 05/26/16 05/27/16 05/28/16 05:59 05:59 05:59 Intake Total 1839 Output Total 200 Balance 1639 Vitals reviewed Gen- alopecia, NAD HEENT - anicteric CV - RRR Lungs - mild crackles at bases but otherwise clear Abd - soft, BS+, nontender Ext - no sig edema Skin - maculopapular rash most pronounced on lower extremities ICD10 Worksheet Patient Problems: Problems Problem Status Onset Diarrhea Acute Lower GI bleed Acute Upper GI bleed Acute
[2016-05-27] MEDS: hydrOXYzine HCL 25 MG TAB PO PRN ×2 (13:13→20:47)
[2016-05-27] MEDS: PATCH REMOVAL 1 EA PATCH TD SCH (20:16)
[2016-05-27] MEDS: traZODone 100 MG TAB PO SCH (21:43)
[2016-05-28] MEDS: LOPERAMIDE HCL 2 MG CAP PO SCH ×6 (02:40→20:44)
[2016-05-28] MEDS: DIPHENOXYLATE/ATROPINE LOMOTIL 1 TAB PO SCH ×5 (04:59→20:45)
[2016-05-28 05:25] LABS: % IMMATURE GRANULYOCYTES 0.7 % (0.0-1.1); ABSOLUTE IMMATURE GRANULOCYTES 0.03 10^3/uL (0.00-0.10); ADD DIFF? NO; ADD MORPH? NO; ADD SCAN? YES; ATYPICAL LYMPHOCYTE FLAG 0 (0-99); FRAGMENT RBC FLAG 0 (0-99); HEMATOCRIT 24.7 % (38.0-47.0); HEMOGLOBIN 8.1 g/dL (12.6-16.3); LIPEMIA HEMOLYSIS FLAG 80 (0-99); MEAN CELL HEMOGLOBIN CONCENTR. 32.8 g/dL (32.4-36.7); MEAN CELL VOLUME 103.8 fL (81.5-99.8); MEAN PLATELET VOLUME 10.1 fL (8.7-11.7); PLATELET CLUMPS FLAG 10 (0-99); RED BLOOD CELL COUNT 2.38 10^6/uL (4.18-5.33); RED CELL DISTRIBUTION WIDTH 17.7 % (11.5-15.2)
[2016-05-28 05:29] LABS: ALANINE AMINOTRANSFERASE 27 IU/L (9-52); ALBUMIN 2.3 g/dL (3.5-5.0); ALKALINE PHOSPHATASE 47 IU/L (38-126); ANION GAP 6 mEq/L (8-16); ASPARTATE AMINOTRANSFERASE 20 IU/L (14-46); CALCIUM 8.3 mg/dL (8.5-10.4); CARBON DIOXIDE 22 mEq/l (22-31); CHLORIDE 108 mEq/L (97-110); CREATININE 0.7 mg/dL (0.6-1.0); GLOMERULAR FILTRATION RATE > 60; GLUCOSE 115 mg/dL (70-100); LEFT SHIFT FLG 270 (0-99); POTASSIUM 3.8 mEq/L (3.5-5.2); SODIUM 136 mEq/L (134-144); TOTAL PROTEIN 4.2 g/dL (6.3-8.2)
[2016-05-28 05:31] LABS: PLATELET COUNT 29 10^3/uL (150-400)
[2016-05-28 06:18] LABS: SCAN POSITIVE
[2016-05-28 06:28] LABS: MACROCYTES 1+
[2016-05-28 06:29] LABS: PLATELET ESTIMATE DECREASED (ADEQ); TOXIC GRANULATION PRESENT
[2016-05-28] MEDS: oxyCODONE IR 5 MG TAB PO PRN ×4 (08:48→22:05)
[2016-05-28] MEDS: MULTIVITAMINS 1 EACH TAB PO SCH (08:48)
[2016-05-28] MEDS: LIDOCAINE 5% 1 EA PATCH TD SCH (08:48)
[2016-05-28] MEDS: CHOLECALCIFEROL VIT D3 1,000 UNITS TAB PO SCH (08:48)
[2016-05-28] MEDS: PARoxetine HCL 20 MG TAB PO SCH (08:49)
[2016-05-28] MEDS: MBX SOLN 30 ML BOTTLE PO PRN (08:49)
[2016-05-28] MEDS: TRIAMCINOLONE TP SCH ×2 (08:49→20:45)
[2016-05-28] MEDS: POTASSIUM CL 20 MEQ TAB PO SCH ×3 (08:49→18:04)
[2016-05-28] MEDS: PANTOPRAZOLE SODIUM 40 MG TAB PO SCH (08:49)
[2016-05-28] MEDS: OCTREOTIDE ACETATE 50 MCG/ML INJ SC SCH ×3 (08:50→20:45)
[2016-05-28] MEDS: PSYLLIUM METAMUCIL 1 PKT PO SCH ×2 (08:51→20:45)
[2016-05-28] MEDS: D5W 1/2 NS W/ 20 KCl/L 1,000 ML IV SCH ×2 (10:23→20:46)
--- NOTE | 2016-05-28 10:41 | WOCRNPDOC ---
[facility] Advanced Assessment Note - Skin Integrity Problem, Advanced Assess Gluteal Cleft Incont Assoc Dermatitis Dressing Type: Open to Air Integumentary Issue Intervention: Barrier Cream Applied (Calazime) Eryn Wound Tissue: Blanching, Erythema, Raw, Denuded Eryn Wound Swelling: Mild Wound Bed Color: Red Wound Bed Constitution: Smooth Tissue Skin Integrity Problem Comment: Shallow ulcerations noted in gluteal cleft, w/ scant sanguinous exudate noted on patient's brief. These wounds are related to the almost constant exposure to loose stool and moisture. During assessment, clear, liquid, brown-flecked stool was noted coming from her anus almost constantly. I am concerened that in this vulnerable state, the skin throughout her perianal area will breakdown even more significantly. Spoke w/ hospitalist Dr. Maza about placing a rectal tube until diarrhea can be better controlled. Report given to shopper insights managerSOCO Goddard.
--- NOTE | 2016-05-28 12:09 | SOAPPROG ---
SOAP Progress Note Assessment/Plan: Assessment/Plan: 66yo woman w early stage HER2+ breast cancer s/p neoadjuvant Chemo w [facility]P p/w chemo induced diarrhea, pancytopenia, taxotere induced rash, and deconditioning 1. Diarrhea - persistent and slow to improve cont octreotide; would increase dose by 100mcg if not improving by tomorrow Cont aggressive lomotil/imodium/IVF C/ diff negative 05/23 Consider other stool studies? 2. Pancytopenia - chemo induced, counts ok today, monitor for transfusion needs last received plts on 05/26/16 3. Taxotere rash - topicals and hydroxyzine for pruritus; improving 4. deconditioning - short rehab stay is favored 5. Breast ca - believe she has completed neoadj chemo but will follow up with that prior to d/c 05/28/16 12:07 Subjective: Still having a lot of liquid stool denies pain or fever Objective: Vital Signs Temp Pulse Resp BP Pulse Ox 36.9 C 95 18 110/65 90 L 05/28/16 08:05 05/28/16 08:05 05/28/16 08:05 05/28/16 08:05 05/28/16 08:05 Microbiology 05/22/16 21:20 Blood Culture - Final Blood 05/22/16 21:20 Blood Culture - Final Blood Laboratory Results 05/28/16 04:58 05/28/16 04:58 05/27/16 05/28/16 05/29/16 05:59 05:59 05:59 Intake Total 1839 2950 Output Total 200 300 Balance 1639 2650 Gen - chronically ill appearing, NAD HEENT - anicteric CV - RRR Abd - soft, BS hyperactive Ext - maculopapular rash stable ICD10 Worksheet Patient Problems: Problems Problem Status Onset Diarrhea Acute Lower GI bleed Acute Upper GI bleed Acute
--- NOTE | 2016-05-28 17:21 | HOSPPROG ---
Hospitalist Progress Note Assessment/Plan: 58-year-old female, with history of breast cancer and chronic diarrhea presenting with: - acute on chronic diarrhea, persistent with 10-15 stools per day. Will increase lomitil, immodium - C diff negative, from chemo s/e - DC'd Levaquin - Lomotil and Immodium. Have added opium tincture today and placed a rectal stool. Will increase the octreotide tomorrow if she does not improved. - thrombocytopenia - with intermittent daily (AM) minimal gingival bleeding/ epistaxis. Today platelets of fallen to 29,000 from 50,000 but there is no signs of bleeding - improving neutropenia; resolved - acute anemia of unclear etiology possibly due to blood loss status post 3 units of packed red blood cells. hemoglobin is low but stable at 8.1 currently -Dr. Maldonado had discussed GI workup with Dr. Holm who said she has undergone extensive w/u in the past. -monitor blood counts. -Onc recs appreciated. -1u plt transfusion today - Perineal skin breakdown due to excessive diarrhea. Wound consultation note appreciated. We will place a rectal tube. - hypokalemia, resolved - Taxotere related rash - improving slowly; will add hydoxizine. some improvement with hydroxyzine today. -no improvement with topical benadryl -triamcinolone cream -benadryl po prn itching - back pain acute on chronic, foot drop -oxyir prn and lidoderm -needs PT/OT - would benefit from acute rehab placement instead of going straight home. - generalized weakness -secondary to deconditioning, chemotherapy s/e. -Discussed w/ Dr. Luque-- per Dr. Holm, pt to go to Acute Rehab following this hospital visit once she stabilizes. Subjective: No complaints of chest pain shortness of breath. She reports she continues to have significant bruising from the rectum. I have rec commended a rectal tube and she has agreed. Objective: Vital Signs Temp Pulse Resp BP Pulse Ox 36.7 C 86 18 110/70 93 05/28/16 16:35 05/28/16 16:35 05/28/16 16:35 05/28/16 16:35 05/28/16 16:35 Microbiology 05/22/16 21:20 Blood Culture - Final Blood 05/22/16 21:20 Blood Culture - Final Blood Laboratory Results 05/28/16 04:58 05/28/16 04:58 05/27/16 05/28/16 05/29/16 05:59 05:59 05:59 Intake Total 1839 2950 750 Output Total 200 300 Balance 1639 2650 750 - Time Spent With Patient Time Spent with Patient: greater than 35 minutes Time Spent with Patient: Greater than 35 minutes spent on this patients care, greater than 50% of time spent counseling, educating, and coordinating care regarding the above mentioned plan. - Pending Discharge Pending Discharge Within 24 Hours: No Pending Discharge Within 48 Hours: No - Physical Exam Constitutional: no apparent distress, chronically ill appearing Eyes: PERRL Ears, Nose, Mouth, Throat: moist mucous membranes, hearing normal Cardiovascular: regular rate and rhythym, no murmur, rub, or gallop Respiratory: no respiratory distress, no rales or rhonchi, clear to auscultation Gastrointestinal: normoactive bowel sounds, soft, non-tender abdomen, no palpable masses Skin: other (Significant erythematous skin and perineum with skin breakdown. There is persistent liquid stool slowly oozing from the perineal region. No signs of cellulitis.) Musculoskeletal: generalized weakness Neurologic: AAOx3, CN II-XII Intact Psychiatric: interacting appropriately ICD10 Worksheet Patient Problems: Problems Problem Status Onset Lower GI bleed Acute Upper GI bleed Acute Diarrhea Acute
[2016-05-28] MEDS: OPIUM TINCTURE 6 MG/0.6 ML UDSYR PO SCH ×2 (18:04→20:45)
[2016-05-28] MEDS: traZODone 100 MG TAB PO SCH (20:44)
[2016-05-28] MEDS: PATCH REMOVAL 1 EA PATCH TD SCH (20:46)
[2016-05-29] MEDS: LOPERAMIDE HCL 2 MG CAP PO SCH ×6 (01:27→21:21)
[2016-05-29] MEDS: DIPHENOXYLATE/ATROPINE LOMOTIL 1 TAB PO SCH ×6 (01:27→21:21)
[2016-05-29] MEDS: OPIUM TINCTURE 6 MG/0.6 ML UDSYR PO SCH ×4 (05:04→21:21)
[2016-05-29 05:17] LABS: % IMMATURE GRANULYOCYTES 2.1 % (0.0-1.1); ABSOLUTE IMMATURE GRANULOCYTES 0.09 10^3/uL (0.00-0.10); ADD DIFF? NO; ADD MORPH? NO; ADD SCAN? YES; ATYPICAL LYMPHOCYTE FLAG 60 (0-99); FRAGMENT RBC FLAG 10 (0-99); HEMATOCRIT 25.2 % (38.0-47.0); HEMOGLOBIN 8.3 g/dL (12.6-16.3); LIPEMIA HEMOLYSIS FLAG 80 (0-99); MEAN CELL HEMOGLOBIN 33.9 pg (27.9-34.1); MEAN CELL HEMOGLOBIN CONCENTR. 32.9 g/dL (32.4-36.7); MEAN CELL VOLUME 102.9 fL (81.5-99.8); MEAN PLATELET VOLUME 8.5 fL (8.7-11.7); PLATELET CLUMPS FLAG 10 (0-99); RED BLOOD CELL COUNT 2.45 10^6/uL (4.18-5.33); RED CELL DISTRIBUTION WIDTH 17.3 % (11.5-15.2)
[2016-05-29 05:19] LABS: LEFT SHIFT FLG 160 (0-99)
[2016-05-29 05:23] LABS: PLATELET COUNT 18 10^3/uL (150-400)
[2016-05-29 05:36] LABS: ANION GAP 5 mEq/L (8-16); CALCIUM 7.8 mg/dL (8.5-10.4); CARBON DIOXIDE 23 mEq/l (22-31); CHLORIDE 108 mEq/L (97-110); CREATININE 0.8 mg/dL (0.6-1.0); GLOMERULAR FILTRATION RATE > 60; GLUCOSE 113 mg/dL (70-100); POTASSIUM 3.6 mEq/L (3.5-5.2); SODIUM 136 mEq/L (134-144)
[2016-05-29 05:43] LABS: SCAN NEGATIVE
[2016-05-29 05:44] LABS: PLATELET ESTIMATE DECREASED (ADEQ)
[2016-05-29] MEDS: POTASSIUM CL 20 MEQ TAB PO SCH ×3 (08:14→17:31)
[2016-05-29] MEDS: MULTIVITAMINS 1 EACH TAB PO SCH (08:15)
[2016-05-29] MEDS: PARoxetine HCL 20 MG TAB PO SCH (08:16)
[2016-05-29] MEDS: PANTOPRAZOLE SODIUM 40 MG TAB PO SCH (08:16)
[2016-05-29] MEDS: PSYLLIUM METAMUCIL 1 PKT PO SCH ×2 (08:16→21:21)
[2016-05-29] MEDS: CHOLECALCIFEROL VIT D3 1,000 UNITS TAB PO SCH (08:16)
[2016-05-29] MEDS: LIDOCAINE 5% 1 EA PATCH TD SCH (08:16)
[2016-05-29] MEDS: OCTREOTIDE ACETATE 50 MCG/ML INJ SC SCH ×2 (08:17→15:29)
[2016-05-29] MEDS: oxyCODONE IR 5 MG TAB PO PRN (08:21)
--- NOTE | 2016-05-29 08:23 | HOSPPROG ---
Hospitalist Progress Note Assessment/Plan: 58-year-old female, with history of breast cancer and chronic diarrhea presenting with: - acute on chronic diarrhea, persistent with 10-15 stools per day. Will increase lomitil, immodium - C diff negative, from chemo s/e - DC'd Levaquin - Lomotil and Immodium. Have added opium tincture today and placed a rectal stool. Will increase the octreotide tomorrow if she does not improved. - thrombocytopenia - with intermittent daily (AM) minimal gingival bleeding/ epistaxis. Today 50 -> 29 -. 18,000 - improving neutropenia; resolved - acute anemia of unclear etiology possibly due to blood loss status post 3 units of packed red blood cells. hemoglobin is low but stable at 8.1 currently -Dr. Maldonado had discussed GI workup with Dr. Holm who said she has undergone extensive w/u in the past. -monitor blood counts. -Onc recs appreciated. -1u plt transfusion today - Perineal skin breakdown due to excessive diarrhea. Wound consultation note appreciated. We will place a rectal tube. - hypokalemia, resolved - Taxotere related rash - improving slowly; will add hydoxizine. some improvement with hydroxyzine today. -no improvement with topical benadryl -triamcinolone cream -benadryl po prn itching - back pain acute on chronic, foot drop -oxyir prn and lidoderm -needs PT/OT - would benefit from acute rehab placement instead of going straight home. - generalized weakness -secondary to deconditioning, chemotherapy s/e. -Discussed w/ Dr. Luque-- per Dr. Holm, pt to go to Acute Rehab following this hospital visit once she stabilizes. Objective: Vital Signs Temp Pulse Resp BP Pulse Ox 37.4 C 90 18 108/64 94 05/29/16 07:53 05/29/16 07:53 05/29/16 07:53 05/29/16 07:53 05/29/16 07:53 Microbiology 05/22/16 21:20 Blood Culture - Final Blood 05/22/16 21:20 Blood Culture - Final Blood Laboratory Results 05/29/16 05:06 05/29/16 05:06 05/28/16 05/29/16 05/30/16 05:59 05:59 05:59 Intake Total 2950 3088 Output Total 300 Balance 2650 3088 Laboratory Tests 05/25/16 05/26/16 05/27/16 04:30 05:00 03:40 WBC 6.90 Hgb 9.3 L 8.3 L Plt Count 18 L* 11 L* 50 L 05/28/16 05/29/16 04:58 05:06 WBC 4.43 Hgb 8.1 L 8.3 L Plt Count 29 L* 18 L* ICD10 Worksheet Patient Problems: Problems Problem Status Onset Lower GI bleed Acute Upper GI bleed Acute Diarrhea Acute
[2016-05-29] MEDS: TRIAMCINOLONE TP SCH ×3 (08:32→21:28)
--- NOTE | 2016-05-29 08:53 | SOAPPROG ---
SOAP Progress Note Assessment/Plan: Assessment/Plan: 66yo woman w early stage HER2+ breast cancer s/p neoadjuvant Chemo w [facility] p/w chemo induced diarrhea, pancytopenia, taxotere induced rash, and deconditioning 1. Diarrhea - persistent and slow to improve cont octreotide; would increase dose to 100mcg Recent endoscoppy/colonoscopy Cont aggressive lomotil/imodium/IVF C/ diff negative 05/23 Consider other stool studies? 2. Pancytopenia - chemo induced, counts ok today, monitor for transfusion needs last received plts on 05/26/16 platelets down again today 3. Taxotere rash - topicals and hydroxyzine for pruritus; improving 4. deconditioning - short rehab stay is favored 5. Breast ca - believe she has completed neoadj chemo but will follow up with that prior to d/c 05/29/16 08:51 Subjective: No acute events still c/o diarrhea but feels rash has improved Objective: Vital Signs Temp Pulse Resp BP Pulse Ox 37.4 C 90 18 108/64 94 05/29/16 07:53 05/29/16 07:53 05/29/16 07:53 05/29/16 07:53 05/29/16 07:53 Microbiology 05/22/16 21:20 Blood Culture - Final Blood 05/22/16 21:20 Blood Culture - Final Blood Laboratory Results 05/29/16 05:06 05/29/16 05:06 05/28/16 05/29/16 05/30/16 05:59 05:59 05:59 Intake Total 2950 3088 Output Total 300 Balance 2650 3088 Gen - chronically ill appearing, NAD HEENT - anicteric Heart - RRR Abd - soft, BS+ Ext - maculopapular rash slightly improved ICD10 Worksheet Patient Problems: Problems Problem Status Onset Diarrhea Acute Lower GI bleed Acute Upper GI bleed Acute
--- NOTE | 2016-05-29 15:18 | WOCRNPDOC ---
WOCRN Advanced Assessment Note - Skin Integrity Problem, Advanced Assess Gluteal Cleft Incont Assoc Dermatitis Dressing Type: Open to Air Exudate Amount: Scant Exudate Color: Red Exudate Characteristic(s): Bloody Integumentary Issue Intervention: Barrier Cream Applied (Clear zinc) Dickson Wound Tissue: Blanching, Erythema, Denuded Dickson Wound Swelling: Mild Wound Bed Color: Red Wound Bed Constitution: Smooth Tissue Skin Integrity Problem Comment: Patient and nursing both report decreased loose stools today. As a result her perianal skin looks much better. Shallow ulcerations noted on both sides of her anus, w/ denudement extending onto upper , inner thighs. Prolapsed rectum observed during dickson-care, which reduced after patient stood up. Scant, bloody exudate noted on wipe. Changed order to clear zinc instead of Calazime. Wound care will continue to monitor ongoing.
[2016-05-29] MEDS: D5W 1/2 NS W/ 20 KCl/L 1,000 ML IV SCH (15:32)
--- NOTE | 2016-05-29 17:34 | HOSPPROG ---
Hospitalist Progress Note Assessment/Plan: 58-year-old female, with history of breast cancer and chronic diarrhea presenting with: - acute on chronic diarrhea, persistent with 10-15 stools per day. Will increase lomitil, immodium - C diff negative, from chemo s/e - DC'd Levaquin - Lomotil and Immodium. Have added opium tincture today and placed a rectal stool. Octreotide increased to 100 mcg three times daily today. The diarrhea may be improving but I will pursue a daily assessment here. - thrombocytopenia - with intermittent daily (AM) minimal gingival bleeding/ epistaxis. Today 50 -> 29 -. 18,000. Oncology prefers to watch there is no active signs of bleeding. - improving neutropenia; resolved - acute anemia of unclear etiology possibly due to blood loss status post 3 units of packed red blood cells. hemoglobin is low but stable at 8.1 currently -she has undergone extensive w/u in the past. -monitor blood counts. -Onc recs appreciated. - Perineal skin breakdown due to excessive diarrhea. Wound consultation note appreciated. Patient has a diarrhea is improving and she would like not to have the rectal tube. - hypokalemia, resolved - Taxotere related rash - improving slowly; will add hydoxizine. Improving and resolving. -triamcinolone cream -benadryl po prn itching - back pain acute on chronic, foot drop -oxyir prn and lidoderm -needs PT/OT - would benefit from acute rehab placement instead of going straight home. - generalized weakness -secondary to deconditioning, chemotherapy s/e. -Discussed w/ Dr. Luque-- per Dr. Holm, pt to go to Acute Rehab following this hospital visit once she stabilizes. Plan: Discharge to an SNF in normal next 1-2 days. This is dependent upon an improvement in the diarrhea and stabilization of her thrombocytopenia and hemoglobin. The rash is improving. Subjective: No complaints she says the rash is improving and as is the diarrhea. Denies fever chills sweats cough shortness of breath or abdominal pain. Objective: Vital Signs Temp Pulse Resp BP Pulse Ox 36.9 C 110 H 18 110/70 95 05/29/16 16:26 05/29/16 16:26 05/29/16 16:26 05/29/16 16:26 05/29/16 16:26 Laboratory Results 05/29/16 05:06 05/29/16 05:06 05/28/16 05/29/16 05/30/16 05:59 05:59 05:59 Intake Total 2950 3088 250 Output Total 300 Balance 2650 3088 250 - Time Spent With Patient Time Spent with Patient: greater than 35 minutes Time Spent with Patient: Greater than 35 minutes spent on this patients care, greater than 50% of time spent counseling, educating, and coordinating care regarding the above mentioned plan. - Pending Discharge Pending Discharge Within 24 Hours: No Pending Discharge Within 48 Hours: No - Physical Exam Constitutional: chronically ill appearing Eyes: PERRL Ears, Nose, Mouth, Throat: moist mucous membranes, hearing normal Cardiovascular: regular rate and rhythym, no murmur, rub, or gallop, systolic murmur Respiratory: no respiratory distress, no rales or rhonchi, clear to auscultation Gastrointestinal: normoactive bowel sounds, soft, non-tender abdomen, no palpable masses, other (Perineal region is covered in ointment can said to be improving.) Skin: warm Musculoskeletal: generalized weakness Neurologic: AAOx3, CN II-XII Intact Psychiatric: interacting appropriately ICD10 Worksheet Patient Problems: Problems Problem Status Onset Lower GI bleed Acute Upper GI bleed Acute Diarrhea Acute
[2016-05-29] MEDS: traZODone 100 MG TAB PO SCH (21:21)
[2016-05-29] MEDS: PATCH REMOVAL 1 EA PATCH TD SCH (21:28)
[2016-05-29] MEDS: OCTREOTIDE 100 MCG/1 ML INJ SC SCH (22:10)
[2016-05-30] MEDS: DIPHENOXYLATE/ATROPINE LOMOTIL 1 TAB PO SCH ×6 (01:42→21:13)
[2016-05-30] MEDS: LOPERAMIDE HCL 2 MG CAP PO SCH ×6 (01:43→21:13)
[2016-05-30] MEDS: D5W 1/2 NS W/ 20 KCl/L 1,000 ML IV SCH ×3 (01:48→21:45)
[2016-05-30] MEDS: OPIUM TINCTURE 6 MG/0.6 ML UDSYR PO SCH ×4 (04:49→21:13)
[2016-05-30 05:03] LABS: % IMMATURE GRANULYOCYTES 0.5 % (0.0-1.1); ABSOLUTE IMMATURE GRANULOCYTES 0.02 10^3/uL (0.00-0.10); ADD DIFF? NO; ADD MORPH? NO; ADD SCAN? YES; ATYPICAL LYMPHOCYTE FLAG 60 (0-99); FRAGMENT RBC FLAG 0 (0-99); HEMATOCRIT 23.7 % (38.0-47.0); HEMOGLOBIN 7.9 g/dL (12.6-16.3); LIPEMIA HEMOLYSIS FLAG 80 (0-99); MEAN CELL HEMOGLOBIN 34.5 pg (27.9-34.1); MEAN CELL HEMOGLOBIN CONCENTR. 33.3 g/dL (32.4-36.7); MEAN CELL VOLUME 103.5 fL (81.5-99.8); MEAN PLATELET VOLUME 10.7 fL (8.7-11.7); PLATELET CLUMPS FLAG 0 (0-99); RED BLOOD CELL COUNT 2.29 10^6/uL (4.18-5.33); RED CELL DISTRIBUTION WIDTH 17.1 % (11.5-15.2)
[2016-05-30 05:05] LABS: LEFT SHIFT FLG 110 (0-99)
[2016-05-30 05:08] LABS: PLATELET COUNT 11 10^3/uL (150-400)
[2016-05-30 05:30] LABS: SCAN NEGATIVE
[2016-05-30 05:32] LABS: PLATELET ESTIMATE DECREASED (ADEQ)
[2016-05-30] MEDS: PARoxetine HCL 20 MG TAB PO SCH (09:33)
[2016-05-30] MEDS: PANTOPRAZOLE SODIUM 40 MG TAB PO SCH (09:33)
[2016-05-30] MEDS: CHOLECALCIFEROL VIT D3 1,000 UNITS TAB PO SCH (09:33)
[2016-05-30] MEDS: POTASSIUM CL 20 MEQ TAB PO SCH ×3 (09:33→18:03)
[2016-05-30] MEDS: MULTIVITAMINS 1 EACH TAB PO SCH (09:33)
[2016-05-30] MEDS: LIDOCAINE 5% 1 EA PATCH TD SCH (09:34)
[2016-05-30] MEDS: PSYLLIUM METAMUCIL 1 PKT PO SCH ×2 (09:34→21:13)
[2016-05-30] MEDS: TRIAMCINOLONE TP SCH ×2 (09:35→21:14)
[2016-05-30] MEDS: OCTREOTIDE 100 MCG/1 ML INJ SC SCH (10:50)
--- NOTE | 2016-05-30 11:38 | SOAPPROG ---
SOAP Progress Note Assessment/Plan: Assessment/Plan: 66yo woman w early stage HER2+ breast cancer s/p neoadjuvant Chemo w TCHP p/w chemo induced diarrhea, pancytopenia, taxotere induced rash, and deconditioning 1. Diarrhea - finally resolving can d/c octreotide Recent endoscoppy/colonoscopy; hx of rectal ulcer Cont aggressive lomotil/imodium C/ diff negative 05/23 2. Pancytopenia - down to 11,000 today chemo induced, will give plts today given previous lower GI bleed from ulcer last received plts on 05/26/16; will give again today 3. Taxotere rash - topicals and hydroxyzine for pruritus; improving 4. Deconditioning - rehab on d/c 5. Breast ca - believe she has completed neoadj chemo follow up w Dr Holm 05/29/16 08:51 05/30/16 11:34 Subjective: No acute events Feeling better Objective: Vital Signs Temp Pulse Resp BP Pulse Ox 36.9 C 74 16 96/56 L 94 05/30/16 11:21 05/30/16 11:21 05/30/16 11:21 05/30/16 11:21 05/30/16 11:21 Laboratory Results 05/30/16 04:50 05/29/16 05:06 05/29/16 05/30/16 05/31/16 05:59 05:59 05:59 Intake Total 3088 2338 Output Total 250 Balance 3088 2338 -250 Gen - NAD, more energy today] HEENT - anicteric CV - RRR Abd - soft, NT, BS+ Ext - rash improving on LE ICD10 Worksheet Patient Problems: Problems Problem Status Onset Diarrhea Acute Lower GI bleed Acute Upper GI bleed Acute
[2016-05-30] MEDS ORDERED: diphenhydrAMINE 25 MG CAP PO ONE ×2 (13:00→15:30)
--- NOTE | 2016-05-30 13:43 | HOSPPROG ---
Hospitalist Progress Note Assessment/Plan: Assessment: 66-year-old female presents with acute chemo-induced diarrhea complicated by thrombocytopenia, chemo related rash, generalized weakness and deconditioning Plan: 1. Acute diarrhea. Chemotherapy induced, resulting in hypovolemia, status post aggressive electrolyte replacement -continue Imodium and Lomotil, opium tincture -C diff negative -status post IV octreotide, discontinued today and gauge response over the next 24 hours -should continue to improve the further out from chemotherapy she is 2. Breast cancer. Chronic, HER2 positive, status post last cycle of neoadjuvant chemo -will follow up with Dr. Holm 3. Pancytopenia. Chemotherapy induced, anticipate ongoing worsening of thrombocytopenia, discussed with Dr. Singletary, recommends transfuse platelets today, repeat CBC in a.m. -status post 3 units of PRBC's 4. Taxotere related rash. Hydroxyzine as needed, triamcinolone cream as needed , Benadryl as needed 5. Back pain. Acute on chronic, continue oxycodone immediate release and Lidoderm patch 6. Generalized weakness. Secondary to deconditioning the setting of above, patient will require snf facility with rehab Diet. Regular diet Prophylaxis. High risk patient, farm contraindicated given thrombocytopenia, SCDs Code. Full Disposition. Anticipated discharge is 05/31/16, pending stabilization of diarrhea off of IV octreotide. Subjective: Patient reports 1 loose bowel movement today Objective: Vital Signs Temp Pulse Resp BP Pulse Ox 36.9 C 74 16 96/56 L 94 05/30/16 11:21 05/30/16 11:21 05/30/16 11:21 05/30/16 11:21 05/30/16 11:21 Laboratory Results 05/30/16 04:50 05/29/16 05:06 05/29/16 05/30/16 05/31/16 05:59 05:59 05:59 Intake Total 3088 2338 Output Total 250 Balance 3088 2338 -250 - Physical Exam Constitutional: no apparent distress, not in pain, chronically ill appearing, No uncomfortable Cardiovascular: systolic murmur (2/6 at the sternum), edema (1+ bilateral lower extremity), No irregularly irregular, No tachycardia Respiratory: no respiratory distress, no rales or rhonchi, clear to auscultation Gastrointestinal: normoactive bowel sounds, soft, non-tender abdomen, no palpable masses Skin: other (Dry, red rash over the bilateral lower extremities anterior shins, non blanchable, minimal scattered ecchymoses) Neurologic: AAOx3, sensation intact bilaterally, weakness (Right foot drop, left foot 5/5 motor strength) Psychiatric: interacting appropriately, not anxious, not encephalopathic, thought process linear ICD10 Worksheet Patient Problems: Problems Problem Status Onset Lower GI bleed Acute Upper GI bleed Acute Diarrhea Acute
[2016-05-30] MEDS: ACETAMINOPHEN 325 MG TAB PO PRN (15:07)
[2016-05-30] MEDS: oxyCODONE IR 5 MG TAB PO PRN (16:00)
[2016-05-30] MEDS: traZODone 100 MG TAB PO SCH (21:13)
[2016-05-30] MEDS: PATCH REMOVAL 1 EA PATCH TD SCH (21:14)
[2016-05-31] MEDS: DIPHENOXYLATE/ATROPINE LOMOTIL 1 TAB PO SCH ×5 (01:45→17:08)
[2016-05-31] MEDS: LOPERAMIDE HCL 2 MG CAP PO SCH ×4 (01:45→13:12)
[2016-05-31] MEDS: D5W 1/2 NS W/ 20 KCl/L 1,000 ML IV SCH (05:06)
[2016-05-31] MEDS: OPIUM TINCTURE 6 MG/0.6 ML UDSYR PO SCH ×3 (05:06→17:04)
[2016-05-31 05:49] LABS: % IMMATURE GRANULYOCYTES 0.6 % (0.0-1.1); ABSOLUTE IMMATURE GRANULOCYTES 0.02 10^3/uL (0.00-0.10); ADD DIFF? NO; ADD SCAN? YES; FRAGMENT RBC FLAG 0 (0-99); HEMATOCRIT 22.7 % (38.0-47.0); HEMOGLOBIN 7.4 g/dL (12.6-16.3); LEFT SHIFT FLG 80 (0-99); LIPEMIA HEMOLYSIS FLAG 80 (0-99); MEAN CELL HEMOGLOBIN 33.3 pg (27.9-34.1); MEAN CELL HEMOGLOBIN CONCENTR. 32.6 g/dL (32.4-36.7); MEAN CELL VOLUME 102.3 fL (81.5-99.8); MEAN PLATELET VOLUME 11.6 fL (8.7-11.7); PLATELET CLUMPS FLAG 20 (0-99); PLATELET COUNT 60 10^3/uL (150-400); RED BLOOD CELL COUNT 2.22 10^6/uL (4.18-5.33); RED CELL DISTRIBUTION WIDTH 17.3 % (11.5-15.2)
[2016-05-31 05:50] LABS: ATYPICAL LYMPHOCYTE FLAG 120 (0-99)
[2016-05-31 05:55] LABS: ANION GAP 4 mEq/L (8-16); CALCIUM 7.9 mg/dL (8.5-10.4); CARBON DIOXIDE 19 mEq/l (22-31); CHLORIDE 112 mEq/L (97-110); CREATININE 0.7 mg/dL (0.6-1.0); GLOMERULAR FILTRATION RATE > 60; GLUCOSE 71 mg/dL (70-100); POTASSIUM 4.6 mEq/L (3.5-5.2); SODIUM 135 mEq/L (134-144)
[2016-05-31 06:19] LABS: ADD MORPH? YES; SCAN NEGATIVE
[2016-05-31 06:20] LABS: PLATELET ESTIMATE DECREASED (ADEQ); TOXIC GRANULATION PRESENT
[2016-05-31 08:23] VITALS: RESP 18
[2016-05-31] MEDS: POTASSIUM CL 20 MEQ TAB PO SCH ×2 (10:15→13:17)
[2016-05-31] MEDS: PSYLLIUM METAMUCIL 1 PKT PO SCH (10:15)
[2016-05-31] MEDS: PARoxetine HCL 20 MG TAB PO SCH (10:16)
[2016-05-31] MEDS: CHOLECALCIFEROL VIT D3 1,000 UNITS TAB PO SCH (10:17)
[2016-05-31] MEDS: MULTIVITAMINS 1 EACH TAB PO SCH (10:17)
[2016-05-31] MEDS: PANTOPRAZOLE SODIUM 40 MG TAB PO SCH (10:17)
[2016-05-31] MEDS: LIDOCAINE 5% 1 EA PATCH TD SCH (10:18)
[2016-05-31] MEDS: TRIAMCINOLONE TP SCH (10:27)
--- NOTE | 2016-05-31 11:02 | SOAPPROG ---
SOAP Progress Note Assessment/Plan: Assessment: 1.) Diarrhea- diminished and responding to medical Tx. 2.) Breast Cancer HER-2/Jim + on TCH + Perjeta regimen 3.) Tx related myelosuppression 4.) Discharge planning: Pt feels ready to go to Rehab center- plans for [facility] noted. Could go later today. 5.) Continue follow up with Dr Holm at [facility] Plan: See above discussion. 05/31/16 11:00 Subjective: Feeling better, still with about 6 stools in past 24 hours. No platelet transfusion reaction. NO new sx. Objective: HEENT- pale, anicteric,no oral thrush Neck - supple Chest- clear anteriorly CVS- RSR, no extra HS, ABD- soft, NT BS+ EXT- resolving rash, 1+ - 2 + leg edema, bilaterally. Labs as noted. Vital Signs Temp Pulse Resp BP Pulse Ox 36.7 C 85 18 106/58 L 96 05/31/16 08:23 05/31/16 08:23 05/31/16 08:23 05/31/16 08:23 05/31/16 08:23 Laboratory Results 05/31/16 05:05 05/31/16 05:05 05/30/16 05/31/16 06/01/16 05:59 05:59 05:59 Intake Total 2338 2631 Output Total 550 150 Balance 2338 2081 -150 ICD10 Worksheet Patient Problems: Problems Problem Status Onset Diarrhea Acute Lower GI bleed Acute Upper GI bleed Acute
[2016-05-31 13:26] VITALS: O2SAT 94
[2016-05-31] MEDS ORDERED: TEARS/DEXTRAN 70/HYPROMELLOSE 15 ML OPHT.BTL EACHEYE PRN (14:09)
--- NOTE | 2016-05-31 14:09 | PDIAF ---
- Diagnosis Diagnosis: Chemo induced diarrhea Code Status: Full Code - Medication Management Discharge Medications: Medications to Continue on Transfer Cholecalciferol Vit D3 [Vitamin D3 (*)] 5,000 units PO DAILY 02/04/16 [Last Taken Unknown] Ondansetron [Zofran Odt] 8 mg PO Q8 PRN 02/04/16 [Last Taken 02/04/16] PARoxetine HCL [Paxil 20mg (*)] 20 mg PO DAILY 02/04/16 [Last Taken 02/04/16] traZODone [traZODONE 100MG (*)] 150 mg PO HS 02/04/16 [Last Taken 02/03/16] Multivitamins [Multivitamin (*)] 1 each PO DAILY #30 tab 02/06/16 [Last Taken Unknown] Diphenoxylate HCl/Atropine [Diphenoxylate-Atrop 2.5-0.025] 1 tab PO QID PRN 10/31 [Last Taken Unknown] Pantoprazole Sodium [Protonix 40mg (*)] 40 mg PO DAILY 05/22/16 [Last Taken Unknown] Potassium Chloride [Klor-Con M20] 40 meq PO TIDMEAL 05/22/16 [Last Taken Unknown ] Acetaminophen [Tylenol 325mg (*)] 650 mg PO Q4HRS PRN #0 tab 05/31/16 [Last Taken Unknown] Lidocaine 5% [Lidoderm 5% Patch (*)] 1 ea TD DAILY patch 05/31/16 [Last Taken Unknown] Loperamide HCl [Imodium 2 mg (*)] 2 - 4 mg PO Q4H PRN cap 05/31/16 [Last Taken Unknown] Opium Tincture 6 mg PO QID udsyr 05/31/16 [Last Taken Unknown] Patch Removal 1 ea TD DAILY21 patch 05/31/16 [Last Taken Unknown] Psyllium Seed [Metamucil (*)] 1 each PO BID pkt 05/31/16 [Last Taken Unknown] Tears/Dextran 70/Hypromellose [Natural Balance Tears (*)] 1 drop EACHEYE Q2 PRN #1 opht.btl 05/31/16 [Last Taken Unknown] Triamcinolone 0.1% [Triamcinolone 0.1% Cream] 1 amie TP BID cream 05/31/16 [ Last Taken Unknown] hydrOXYzine HCL [hydrOXYzine HCL (RX)] 25 mg PO Q6HRS PRN #0 tab 05/31/16 [Last Taken Unknown] 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 PICC Care - Routine: N/A - Orders Services needed: Registered Nurse, Physical Therapy, Occupational Therapy Diet Recommendation: no restrictions on diet Ramos: Not applicable Activity/Weight Bearing Restrictions: as tolerates - Labs/Radiology BMP Date: 06/04/16 CBC Date: 06/04/16 (weekly thereafter) Call or Fax Lab and Imaging Results to: Dr. Mayuri Holm - Follow Up Care Current Providers and Referrals: Eleni Strange MD [Primary Care Provider] - Mayuri Holm MD [Medical Doctor] - follow up in 1 week (please schedule)
--- NOTE | 2016-05-31 14:15 | PDDCSUM ---
Discharge Summary Discharge Summary: DISCHARGE SUMMARY FOLLOW-UP ITEMS: Follow-up CBC next week DATE OF ADMISSION: 05/22/2016 DATE OF DISCHARGE: 05/31/2016 DISCHARGE DIAGNOSES: 1. Acute chemotherapy induced diarrhea 2. HER2 positive breast cancer 3. Chemotherapy-induced pancytopenia 4. Taxotere related rash 5. Acute on chronic back pain CONSULTATIONS: Oncology PROCEDURES / IMAGING: None CHIEF COMPLAINT: Acute diarrhea SUBJECTIVE: Patient reports diarrhea has resolved, has not had a bowel movement on the day of discharge PHYSICAL EXAM ON DISCHARGE: Systolic blood pressure is 100-110, heart rate in the 80s, chronically ill- appearing woman, good spirits, alert awake oriented x3, trace bilateral lower extremity edema, motor strength 5/5 bilateral lower extremities, abdomen is soft nontender nondistended, breath sounds are clear to auscultation bilaterally without any crackles or wheezes LABS ON DISCHARGE: Hemoglobin is 7.4 pre transfusion, platelet count 14447, creatinine 0.7 HOSPITAL COURSE BY PROBLEM: 1. Acute chemotherapy induced diarrhea. This resulted in hypovolemia and required aggressive electrolyte replacement as well as IV fluids. Her C diff PCR was negative, she received IV octreotide, scheduled Imodium and as needed Lomotil, opium tincture. Patient's diarrhea improved and she will be discharged on as needed Imodium and as needed Lomotil. She also have as needed stool bulking agent. She will have her creatinine BUN and lytes recheck next week. 2. Breast cancer. Patient is status post last cycle of neoadjuvant chemotherapy. They resulted in the above-mentioned symptoms. She will follow up in [address] Holm in the outpatient setting. 3. Chemotherapy-induced pancytopenia. The patient received platelet transfusion for worsening thrombocytopenia and she also received 4 units of packed red blood cells. She had no evidence of active bleeding. She does have a repeat CBC drawn next week prior to her appointment with Dr. Holm. 4. Taxotere related rash. Patient experienced a rash secondary to her chemotherapy agent. Responded well to triamcinolone cream as well as hydroxyzine for itching. These will be continued as needed 5. Acute on chronic back pain. Patient was continued on Lidoderm patch, opium tincture as needed. DISCHARGE MEDICATIONS: Please see official discharge medication reconciliation sheet in chart , Imodium and Lomotil as needed, eyedrops as needed but can be given scheduled if patient so desires. DISCHARGE INSTRUCTIONS: Patient should follow up with primary oncologist next week with labs prior to that appointment. TIME SPENT: Greater than 30 minutes were spent on direct patient care, as well as discharge planning and preparation.
[2016-05-31] MEDS: oxyCODONE IR 5 MG TAB PO PRN (15:06)
[2016-05-31] MEDS: FUROSEMIDE 40 MG/4 ML VIAL IVP ONE ×2 (16:49→17:34)
[2016-05-31] MEDS ORDERED: FUROSEMIDE 40 MG/4 ML VIAL IVP ONE (17:00)
[2016-05-31 17:11] VITALS: BP 106/70; PULSE 67; TEMP 98.3
== END 2016-05-31 18:33 | DRG 917 ==
LOC: F1N 17:23
PROVIDERS: ADMIT Internal Medicine; ATTEND Internal Medicine
PROC: 30233N1 Transfusion of Nonautologous Red Blood Cells into Peripheral Vein, Percutaneous Approach (ICD-10-PCS; principal; 2016-05-22)
PROC: 30233R1 Transfusion of Nonautologous Platelets into Peripheral Vein, Percutaneous Approach (ICD-10-PCS; 2016-05-27)
DX: T45.1X5A Adverse effect of antineoplastic and immunosuppressive drugs, initial encounter (principal); K52.1 Toxic gastroenteritis and colitis; D61.810 Antineoplastic chemotherapy induced pancytopenia; D62 Acute posthemorrhagic anemia; K12.31 Oral mucositis (ulcerative) due to antineoplastic therapy; L27.0 Generalized skin eruption due to drugs and medicaments taken internally; L24.9 Irritant contact dermatitis, unspecified cause; C50.211 Malignant neoplasm of upper-inner quadrant of right female breast; C77.9 Secondary and unspecified malignant neoplasm of lymph node, unspecified; E87.6 Hypokalemia; M54.9 Dorsalgia, unspecified; M21.371 Foot drop, right foot
CPT/HCPCS: 97116-GP; 97161-GP; J2354; J2997; P9016; P9035; Q9967

== ENCOUNTER → 2016-07-09 | Outpatient (CLI) | payer OTHER ==
[~2016-07-09] MED LIST changes: -ACETAMINOPHEN 325 MG TAB PO ONE; +GADOBUTROL 10 ML VIAL IVP ONE
== END ==
LOC: FIMAGING 13:05
PROVIDERS: ATTEND Internal Medicine Hematology & Oncology
DX: C50.211 Malignant neoplasm of upper-inner quadrant of right female breast (principal); E83.42 Hypomagnesemia; D70.1 Agranulocytosis secondary to cancer chemotherapy; K52.1 Toxic gastroenteritis and colitis; E86.0 Dehydration; Z17.1 Estrogen receptor negative status [ER-]; J90 Pleural effusion, not elsewhere classified
CPT/HCPCS: 0159T; A9585; C8908

== ENCOUNTER → 2016-07-24 | Day surgery (SDC) | payer OTHER ==
[~2016-07-24] MED LIST changes: -GADOBUTROL 10 ML VIAL IVP ONE; +LIDOCAINE 1% 30 ML SDV ONE; +NA BICARBONATE 50 MEQ/50 ML VIAL ONE
== END | disposition home or self-care (01) ==
LOC: FIMAGING 07:26
PROVIDERS: ATTEND Radiology Diagnostic Radiology
PROC: 3E0W3KZ Introduction of Other Diagnostic Substance into Lymphatics, Percutaneous Approach (ICD-10-PCS; principal; 2016-07-24)
DX: C50.911 Malignant neoplasm of unspecified site of right female breast (principal)
CPT/HCPCS: 19281; 76098; 78195; A9520

== ENCOUNTER → 2016-11-05 | Outpatient (CLI) | payer OTHER | LOC: FIMAGING 11:53 | PROVIDERS: ATTEND Neurological Surgery | DX: M51.34 Other intervertebral disc degeneration, thoracic region (principal); M48.02 Spinal stenosis, cervical region; M51.36 Other intervertebral disc degeneration, lumbar region ==

== ENCOUNTER → 2017-03-04 | Outpatient (CLI) | payer OTHER | LOC: CIMAGING 16:03 | PROVIDERS: ATTEND Family Medicine | DX: M17.12 Unilateral primary osteoarthritis, left knee (principal); M25.462 Effusion, left knee | CPT/HCPCS: 73562-PO ==

== ENCOUNTER → 2017-06-02 | Outpatient (CLI) | payer OTHER | LOC: FIMAGING 10:07 | PROVIDERS: ATTEND Internal Medicine Hematology & Oncology | DX: Z12.31 Encounter for screening mammogram for malignant neoplasm of breast (principal); Z85.3 Personal history of malignant neoplasm of breast ==

== ENCOUNTER → 2017-10-29 | Outpatient (CLI) | payer OTHER | LOC: FIMAGING 12:50 | PROVIDERS: ATTEND Family Medicine | DX: M81.0 Age-related osteoporosis without current pathological fracture (principal); M23.201 Derangement of unspecified lateral meniscus due to old tear or injury, left knee; M23.612 Other spontaneous disruption of anterior cruciate ligament of left knee ==

== ENCOUNTER → 2018-05-20 | Outpatient (CLI) | payer OTHER | LOC: FIMAGING 14:50 | PROVIDERS: ATTEND Family Medicine | DX: R51 Headache (principal); R93.0 Abnormal findings on diagnostic imaging of skull and head, not elsewhere classified; Z85.3 Personal history of malignant neoplasm of breast ==

== ENCOUNTER → 2018-06-03 | Outpatient (CLI) | payer OTHER | LOC: FIMAGING 12:57 | PROVIDERS: ATTEND Internal Medicine Hematology & Oncology | DX: Z12.31 Encounter for screening mammogram for malignant neoplasm of breast (principal); Z85.3 Personal history of malignant neoplasm of breast ==

== ENCOUNTER → 2018-07-24 | Outpatient (CLI) | payer OTHER ==
[~2018-07-24] MED LIST changes: +GADOBUTROL 10 ML VIAL IVP ONE; -LIDOCAINE 1% 30 ML SDV ONE; -NA BICARBONATE 50 MEQ/50 ML VIAL ONE
== END ==
LOC: FIMAGING 11:02
PROVIDERS: ATTEND Family Medicine
DX: R51 Headache (principal); R90.82 White matter disease, unspecified; R90.89 Other abnormal findings on diagnostic imaging of central nervous system
CPT/HCPCS: 70553; A9585; 82565-PO

== ENCOUNTER → 2018-08-19 | Outpatient (CLI) | payer OTHER | LOC: FIMAGING 17:49 ==